=== PATIENT | female | born 1945 | race Caucasian/White ===

== ENCOUNTER 2021-04-20 17:29 | Emergency (ER) | payer OTHER ==
[~2021-04-20] VITALS: Ht 157.5 cm; Wt 113.4 kg
[2021-04-20] MEDS ORDERED: NAP500T PO (20:10)
[2021-04-20] MEDS ORDERED: KETOROLAC TROMETH 60MG/2ML VIAL IM ONE (20:15)
[2021-04-20 20:45] VITALS: BP 155/84
== END 2021-04-20 20:47 | disposition home or self-care (01) ==
LOC: ER 17:29
DX: M54.41 Lumbago with sciatica, right side (principal); W18.39XA Other fall on same level, initial encounter; Y93.89 Activity, other specified; Y92.89 Other specified places as the place of occurrence of the external cause; Y99.8 Other external cause status
CPT/HCPCS: 72100; 96372; 99283; J1885

== ENCOUNTER 2024-04-16 15:20 | Inpatient (IN) | payer MEDICARE, OTHER ==
[~2024-04-16] VITALS: Ht 157.5 cm; Wt 103.0 kg
[~2024-04-16 15:20] MED LIST: NAP500T PO
--- NOTE | 2024-04-16 15:40 | ED.PDOC ---
History of Present Illness HPI Comments 79-year-old female with PMHx Slipped Disc, DM presents with a chief complaint of abdominal pain and back pain. Patient reports that her pain is localized to her epigastric region, radiates to her backside, and rates her pain a 8/10. Patient mentions that she also has recently been experiencing nausea, vomiting, and diarrhea, but currently is not experiencing those symptoms. No other symptoms or modifying factors present at this time. Patient was hypertensive on arrival. Patient states she has multiple comorbidities for which he has not taken medication in the past several months including hypertension and diabetes. Time Seen by MD: 15:35 Reviewed Notes: Nurses Notes, Medications, Allergies Allergies: Coded Allergies: NO KNOWN ALLERGIES (Unverified , 04/20/21) Home Meds Active Scripts Naproxen (NAPROSYN TABLET) 500 Mg Tb, 500 MG PO BID for 30 Days, #60 TAB 2 Refills Prov:BUTCH LEBLANC MD 04/20/21 Information Source: Patient Mode of Arrival: Ambulatory Severity: Moderate Timing: Hours Duration: Since onset Prehospital treatment: None Past Medical History PAST MEDICAL HISTORY: DM, HTN Past Medical History (Other): Slipped Disc Surgical History: Denies all surgeries Surgical History (Other): Bilateral Knee Repair, Right Hip 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 Family History Family History: Reviewed,noncontributory to illness Social History Smoker: Non-Smoker Alcohol: Denies ETOH Use Drugs: Denies Drug Use Lives In: Home Constitutional: denies: chills, diaphoresis, fatigue, fever, malaise, sweats, weakness, others EENTM: denies: blurred vision, double vision, ear bleeding, ear discharge, ear drainage, ear pain, ear ringing, eye pain, eye redness, hearing loss, mouth harris n, mouth swelling, nasal discharge, nose bleeding, nose congestion, nose pain, photophobia, tearing, throat pain, throat swelling, voice changes, others Respiratory: denies: cough, hemoptysis, orthopnea, SOB at rest, shortness of breath, SOB with excertion, stridor, wheezing, others Cardiovascular: denies: chest pain, dizzy spells, diaphoresis, Dyspnea on exertion, edema, irregular heart beat, left arm pain, lightheadedness, palpitations, PND, syncope, others Gastrointestinal: reports: abdominal pain; denies: abdomen distended, blood streaked bowels, constipated, diarrhea, dysphagia, difficulty swallowing, hematemesis, melena, nausea, poor appetite, poor fluid intake, rectal bleeding, rectal pain, vomiting, others Genitourinary: denies: abnormal vagina bleeding, burning, dyspareunia, dysuria, flank pain, frequency, hematuria, incontinence, pain, , vagina discharge, urgency, others Neurological: denies: dizziness, fainting, headache, left sided numbness, left sided weakness, numbness, paresthesia, pre-existing deficit, right sided numbness, right sided weakness, seizure, speech problems, tingling, tremors, weakness, others Musculoskeletal: reports: back pain; denies: gout, joint pain, joint swelling, muscle pain, muscle stiffness, neck pain, others Integumetry: denies: bruises, change in color, change in hair/nails, dryness, laceration, lesions, lumps, rash, wounds, others Allergic/Immunocompromised: denies: Difficulty Healing, Frequent Infections, Hives, Itching, others Hematologic/Lymphatic: denies: anemia, blood clots, easy bleeding, easy bruising, swollen glands, others Endocrine: denies: excessive hunger, excessive sweating, excessive thirst, excessive urination, flushing, intolerance to cold, intolerance to heat, unexplained weight gain, unexplained weight loss, others Psychiatric: denies: anxiety, bipolar disorder, depression, hopeless, panic dis order, schizophrenia, sleepless, suicidal, others All Other Systems: Reviewed and Negative Physical Exam Exam Comments Patient appears to be in poor overall health. General Appearance: Moderate Distress (Moderate distress due to belly and back pain concerns.), Normal HEENT: Normal ENT Inspection, Pharynx Normal, TMs Normal Neck: Full Range of Motion, Non-Tender, Normal, Normal Inspection Respiratory: Chest Non-Tender, Lungs Clear, No Accessory Muscle Use, No Respiratory Distress, Normal Breath Sounds Cardiovascular: No Edema, No JVD, No Murmur, No Gallop, Normal Peripheral Pulses, Regular Rate/Rhythm Breast Exam: Deferred Gastrointestinal: Other (Diffuse epigastric tenderness to palpation bilaterally. Difficult to assess due to body habitus. No signs of trauma. No pulsatile masses.) Genitalia: Deferred Pelvic: Deferred Rectal: Deferred Extremities: NOT DONE Musculoskeletal : Location: Bilateral Extremity Location: Back (Diffuse bilateral lower thoracic and lumbar tenderness to palpation. No signs of acute trauma. No step-offs noted. Brianne ent denies any saddle paresthesia. Possible Smith's sign but difficult to assess due to body habitus.) Apperance: Normal Neurologic: Alert, No Motor Deficits, Normal Affect, Normal Mood, No Sensory Deficits Cerebellar Function: Normal Reflexes: Normal Skin: Dry, Normal Color, Warm Lymphatic: No Adenopathy Was a procedure done? Was a procedure done?: No Differential Dx Considerations may include: Chronic back pain, spinal stenosis, degenerative disc disease of the lumbar spine, pancreatitis, cholecystitis, gastroenteritis X-Ray, Labs, Meds, VS Vital Signs Date Time Temp Pulse Resp B/P (MAP) Pulse Ox O2 Delivery O2 Flow Rate FiO2 04/16/24 16:45 195/74 04/16/24 16:34 80 18 98 Room Air 04/16/24 16:34 80 18 195/74 (114) 98 04/16/24 15:54 84 04/16/24 15:38 97.9 88 16 179/74 (109) 98 Lab Test 04/16/24 18:00 04/16/24 17:32 04/16/24 15:58 04/16/24 15:57 Range/Units Lactic Acid Level Pending 2.2 *H 0.4-2.0 mmol/L Urine Color Yellow Yellow Urine Clarity Clear Clear Urine pH 6.5 5.0-9.0 Urine Specific [place] 1.033 1.001-1.035 Urine Protein 3+ H Negative Urine Ketones 1+ H Negative Urine Blood 2+ H Negative /uL Urine Nitrite Negative Negative Urine Bilirubin Negative Negative Urine Urobilinogen Normal Negative mg/dL Urine Leukocyte Esterase Trace Negative /uL Urine RBC 16 0 - 4 /hpf Urine Microscopic WBC 29 H 0-5 /HPF Urine Squamous Epithelial Cells Few <5 /hpf Urine Bacteria None seen None Seen /hpf Urine Glucose 4+ H Normal mg/dL White Blood Count 21.5 H 4.4-10.8 10^3/uL Red Blood Count 5.13 4.0-5.20 10^6/uL Hemoglobin 15.1 12.2-16.2 g/dL Hematocrit 45.2 36.0-46.0 % Mean Corpuscular Volume 88.2 80.0-100.0 fL Mean Corpuscular Hemoglobin 29.4 28.0-32.0 pg Mean Corpuscular Hemoglobin Concent 33.3 32.0-36.0 g/dL Red Cell Distribution Width 14.7 H 11.8-14.3 % Platelet Count 197 140-450 10^3/uL Mean Platelet Volume 9.0 6.9-10.8 fL Neutrophils (%) (Auto) 92.1 H 37.0-80.0 % Lymphocytes (%) (Auto) 2.7 L 10.0-50.0 % Monocytes (%) (Auto) 5.0 0.0-12.0 % Eosinophils (%) (Auto) 0.0 0.0-7.0 % Basophils (%) (Auto) 0.2 0.0-2.0 % Neutrophils # (Auto) 19.8 H 1.6-8.6 10 ^3/uL Lymphocytes # (Auto) 0.6 0.4-5.4 10 ^3/uL Monocytes # (Auto) 1.1 0-1.3 10 ^3/uL Eosinophils # (Auto) 0 0-0.8 10 ^3/uL Basophils # (Auto) 0 0-0.2 10 ^3/uL Nucleated Red Blood Cells 0.0 % Sodium Level 135 L 136-145 mmol/L Potassium Level 4.1 3.5-5.1 mmol/L Chloride Level 101 98-107 mmol/L Carbon Dioxide Level 24 20-31 mmol/L Anion Gap 10 5-15 Blood Urea Nitrogen 18 9-23 mg/dL Creatinine 0.82 0.550-1.02 mg/dL Glomerular Filtration Rate Calc 74 >90 mL/min BUN/Creatinine Ratio 22.0 H 10.0-20.0 Serum Glucose 170 H 74-106 mg/dL Calcium Level 10.0 8.7-10.4 mg/dL Troponin I High Sensitivity 16 </=34 ng/L Lipase 22 12-53 U/L Current Medications Medications (Trade) Dose Ordered Sig/Maria Isabel Route Start Time Stop Time Status Last Admin Dicyclomine HCl (Bentyl Injection) 20 mg ONCE ONCE IM 04/16/24 15:45 04/16/24 15:46 DC 04/16/24 15:45 Ondansetron HCl (Zofran Po) 4 mg ONCE ONCE PO 04/16/24 15:45 04/16/24 15:46 DC 04/16/24 15:45 Clonidine HCl (Catapres Tablet) 0.2 mg ONCE ONCE PO 04/16/24 16:45 04/16/24 16:46 DC 04/16/24 16:45 X-Ray, Labs, Meds, VS Comment All studies performed the ED were evaluated by me personally. [place] [id number] as well as a urinary tract infection. Imaging of the abdomen and pelvis revealed an acute cholecystitis. Radiology contacted me to relay that finding. Patient will be admitted for surgical evaluation. Patient is a has been started empirically on IV antibiotics and her pain will be addressed while in the ED. Time of 1ST Reevaluation: 18:27 Reevaluation 1ST: Improved Consultation: PCP, Surgery Patient Education/Counseling: Diagnosis, Treatment, Prognosis Family Education/Counseling: Diagnosis, Treatment, Prognosis Departure 1 Departure Time of Disposition: 18:28 Impression: Primary Impression: Cholecystitis Additional Impressions: Leukocytosis Urinary tract infection Chronic back pain Hypertension Hyperglycemia due to diabetes mellitus Disposition: ADMITTED INPATIENT Condition: Stable Discharged With: Self Critical Care Note Critical Care Time?: No Stability Stability form required: No Heart Score Heart Score: Heart Score Response (Comments) Value History Slightly Suspicious 0 EKG Normal 0 Age >65 2 Risk Factors 1 or 2 risk factors 1 Troponin Normal limit 0 Total 3 I personally scribed for ZAIRA FUNG PAC ([email or web address]) on 04/16/24 at 15:40. Electronically submitted by Jair Phoenix ([email or web address]). ZAIRA FUNG PAC Apr 16, 2024 15:40
[2024-04-16] MEDS: DICYCLOMINE HCL (10MG/ML) 2 ML AMPULE IM ONE (15:45)
[2024-04-16] MEDS: ONDANSETRON ODT 4 MG TAB PO ONE (15:45)
--- NOTE | 2024-04-16 15:56 | ECG ---
[facility] Test Date: 2024-04-16 Test Time: 15:54:38 Pat Name: IFEANYI MILLS Department: ER Room: 0232 Gender: F Windows Admin: SAUL : 1945 Requested By: ZAIRA FUNG Order Number: [id number] Reading MD: Dennis Edwards Measurements Intervals [place] Rate: 84 P: -3 HI: 168 QRS: -7 QRSD: 89 T: 151 QT: 357 QTc: 422 Interpretive Statements Sinus rhythm Probable left atrial enlargement LVH with secondary repolarization abnormality Electronically Signed On 04-19-2024 8:23:21 PST by Dennis Edwards Please click the below link to view image of tracing.
[2024-04-16 16:14] LABS: Basophils # (auto) 0 10 ^3/uL (0-0.2); Basophils % (auto) 0.2 % (0.0-2.0); Eosinophils # (auto) 0 10 ^3/uL (0-0.8); Hematocrit 45.2 % (36.0-46.0); Hemoglobin 15.1 g/dL (12.2-16.2); Lymphocytes # (auto) 0.6 10 ^3/uL (0.4-5.4); Lymphocytes % (auto) 2.7 % (10.0-50.0); Mean Corpuscular Hemoglobin 29.4 pg (28.0-32.0); Mean Corpuscular Hgb Conc. 33.3 g/dL (32.0-36.0); Mean Corpuscular Volume 88.2 fL (80.0-100.0); Monocytes # (auto) 1.1 10 ^3/uL (0-1.3); Neutrophils # (auto) 19.8 10 ^3/uL (1.6-8.6); Neutrophils % (auto) 92.1 % (37.0-80.0); Platelet Count (auto) 197 10^3/uL (140-450); Red Blood Cells 5.13 10^6/uL (4.0-5.20); Red Cell Distribution Width 14.7 % (11.8-14.3); White Blood Cell 21.5 10^3/uL (4.4-10.8)
[2024-04-16 16:21] LABS: Anion Gap 10 (5-15); Carbon Dioxide 24 mmol/L (20-31); Chloride 101 mmol/L (98-107); Potassium 4.1 mmol/L (3.5-5.1)
--- NOTE | 2024-04-16 16:22 | DVH ---
CT ABDOMEN AND PELVIS WITHOUT CONTRAST CLINICAL HISTORY: Diffuse abdominal and back pain TECHNIQUE: Multiple contiguous axial images of the abdomen and pelvis without intravenous contrast. The images were reformatted degenerate coronal and sagittal reconstructions. All CT scans at this medical facility are performed using dose modulation techniques as appropriate t o a performed exam including the following:Automated exposure control was utilized; adjustment of the MA and/or KV according to patient size; and use of iterative reconstruction technique. Radiation Dose Information: CT Dose: CTDI volume is 33.46 mGy. Dose-length product is 1654.15 mGy*cm Comparison: None FINDINGS: Evaluation of the abdomen and pelvis is limited without intravenous contrast. The gallbladder is distended and filled with mildly hyperdense sludge. There is no obvious radiopaqu e gallstone. There is gallbladder wall thickening and moderate surrounding fatty induration consisten t with acute cholecystitis. There is no significant pericholecystic fluid collection or free air. The liver, gallbladder, pancreas, kidneys, adrenal glands, and spleen appear within normal limits. There is no gross evidence of abdominal lymphadenopathy. The stomach grossly appears unremarkable. The small and large bowel loops demonstrate normal caliber . There are scattered diverticula in the distal colon without evidence of acute diverticulitis. The abdominal aorta and IVC appear within normal limits. The bladder appears unremarkable for the degree of distention. Pelvic organ appears within normal jaimes its. There is no gross evidence of a pelvic mass. There is no free fluid collection. Lung bases are clear. There is no acute osseous abnormality. There is right hip arthroplasty with moderate associated strea k artifact IMPRESSION: 1. Findings consistent with acute cholecystitis. There is no significant pericholecystic fluid collec tion or free air. Critical findings discussed with the clinical service by Dr. Diego Ko via phone on 04/16/2024 04: 16 PM. HS:Y
[2024-04-16 16:27] LABS: Blood Urea Nitrogen 18 mg/dL (9-23); Lipase 22 U/L (12-53)
[2024-04-16 16:28] LABS: Glucose 170 mg/dL (74-106); Sodium 135 mmol/L (136-145)
[2024-04-16 16:37] LABS: Lactic Acid w/Reflex 2.2 mmol/L (0.4-2.0)
[2024-04-16] MEDS: cloNIDine HCL 0.1 MG TAB PO ONE (16:45)
[2024-04-16 17:38] LABS: Urine Bacteria None Seen /hpf (None Seen)
[2024-04-16 18:13] LABS: Urine Blood 2+ /uL (Negative); Urine Clarity Clear (Clear); Urine Color Yellow (Yellow); Urine Protein, UAD 3+ (Negative); Urine Specific Gravity 1.033 (1.001-1.035); Urine Squamous Epithelial Cell FEW /hpf (<5); Urine Urobilinogen Normal (Negative); Urine WBC 29 /HPF (0-5); Urine pH 6.5 (5.0-9.0)
[2024-04-16 19:40] VITALS: PULSE 75; RESP 22; O2SAT 96
[2024-04-16] MEDS: HYDROmorphone HCL 2 MG/ML VL/or syr IV ONE (19:40)
[2024-04-16] MEDS: PIPERACILLIN-TAZO 4.5GM 100 ML IV ONE (19:41)
[2024-04-16] MEDS ORDERED: NITROGLYCERIN 0.4 MG SL TAB SL PRN (21:00)
[2024-04-16] MEDS ORDERED: MORPHINE SULFATE INJ 2 MG/ml SYRG IV PRN (21:00)
[2024-04-16] MEDS ORDERED: ONDANSETRON HCL 4 MG/2 ML VIAL IV PRN (21:00)
--- NOTE | 2024-04-16 21:33 | DVHHPRES ---
History of Present Illness Resident Creating Document: DONNY WALTERS RESIDENT History of Present Illness IFEANYI MILLS 79 yo female with PMH of T2 DM, HTN, RA and slipped disc presented to the ED with the chief complaints of epigastric to right upper quadrant pain for couple of days. Patient reported she never experienced like t he same pain before, which started a epigastric region and right upper quadrant radiating to the back side, intensity is 7 to 8/10 associated with nausea and vomiting and mild diarrhea. Patient denies fever, chest pain, recent sick contacts, travel and other acute associated symptoms at this point. PMH: Type 2 DM, HTN, RA PSH: Bilateral knee replacement and right hip replacement Family history: Reviewed, noncontributory Social history: Lives alone. Denies smoking, alcohol and other drug abuse Allergies: No known allergies Home medications: Review of Systems Review of Systems Seen and examined at the bedside. Constitutional: No: Fever, Chills, Sweats, Weakness, Malaise, Other Eyes: No: Pain, Vision change, Conjunctivae inflammation, Eyelid inflammation, Other, Redness ENT: No: Ear pain, Ear discharge, Nose pain, Nose discharge, Nose congestion, Mouth pain, Mouth swelling, Throat pain, Throat swelling, Other Respiratory: No: Cough, Dry, Shortness of breath, SOB with excertion, Wheezing, Hemoptysis, Pleuritic Pain, Sputum, Wheezing, Other Cardiovascular: No: Chest Pain, Palpitations, Orthopnea, Paroxysmal Noc. D yspnea, Edema, Lt Headedness, Other Gastrointestinal: Nausea, Vomiting, Abdominal Pain Genitourinary: No Dysuria, No Frequency, No Incontinence, No Hematuria, No Retention, No Other Musculoskeletal: No: other, neck pain, shoulder pain, arm pain, back pain, hand pain, leg pain, foot pain Skin: No: Rash, Lesions, Jaundice, Bruising, Other Neurological: No: Weakness, Numbness, Incoordination, Change in speech, Confusion, Seizures, Other Allergies: Coded Allergies: NO KNOWN ALLERGIES (Unverified , 04/20/21) Medications Current Medications Medications Dose Ordered Sig/Maria Isabel Route Start Time Stop Time Status Last Admin Dose Admin Sodium Chloride 1,000 ml @ 60 mls/hr [id number] IV 04/16/24 21:00 UNV Ondansetron HCl 4 mg Q4HP PRN IV 04/16/24 21:00 UNV Enoxaparin Sodium 40 mg DAILY SC 04/17/24 10:00 UNV Acetaminophen 650 mg Q6HP PRN PO 04/16/24 21:00 UNV Morphine Sulfate 2 mg Q4HPRN PRN IV 04/16/24 21:00 UNV Nitroglycerin 0.4 mg Q5MINP PRN SL 04/16/24 21:00 UNV Morphine Sulfate 2 mg Q30M PRN IV 04/16/24 21:00 UNV Ceftriaxone Sodium 50 ml @ 100 mls/hr DAILY IV 04/17/24 10:00 UNV Metronidazole 100 ml @ 100 mls/hr DAILY IV 04/17/24 10:00 UNV Pantoprazole Sodium 40 mg DAILY IV 04/17/24 10:00 UNV Hydralazine HCl 10 mg Q6HP PRN IV 04/16/24 21:30 UNV Exam Vital Signs Vital Signs Date Time Temp Pulse Resp B/P (MAP) Pulse Ox O2 Delivery O2 Flow Rate FiO2 04/16/24 20:30 75 18 139/66 04/16/24 19:40 97.9 96 97.9 04/16/24 19:40 Room Air* 0 21 Exam Pt is lying on bed General Appearance: Alert, Oriented X3, Cooperative, mild distress HEENT: Atraumatic, Mucous membranes moist/pink Respiratory: Clear to auscultation, Normal air movement Cardiovascular: Regular rate, Normal S1, Normal S2, No murmurs Abdominal: Active bowel sounds, Soft, no distention, RUQ tenderness Extremities: No edema, Normal pulses, No tenderness/swelling Skin: No Significant rash, except past surgical scars Neuro: Normal speech, sensorimotor deficits none Psych/Mental Status: Mental status NL, Mood NL Nurse was there as charperone during examination Labs/Xrays Labs Test 04/16/24 21:19 04/16/24 18:00 04/16/24 17:32 04/16/24 15:57 Range/Units Lactic Acid Level 2.3 *H 0.4-2.0 mmol/L Urine Color Yellow Yellow Urine Clarity Clear Clear Urine pH 6.5 5.0-9.0 Urine Specific [place] 1.033 1.001-1.035 Urine Protein 3+ H Negative Urine Ketones 1+ H Negative Urine Blood 2+ H Negative /uL Urine Nitrite Negative Negative Urine Bilirubin Negative Negative Urine Urobilinogen Normal Negative mg/dL Urine Leukocyte Esterase Trace Negative /uL Urine RBC 16 0 - 4 /hpf Urine Microscopic WBC 29 H 0-5 /HPF Urine Squamous Epithelial Cells Few <5 /hpf Urine Bacteria None seen None Seen /hpf Urine Glucose 4+ H Normal mg/dL Eosinophils (%) (Auto) 0.0 0.0-7.0 % Eosinophils # (Auto) 0 0-0.8 10 ^3/uL Basophils # (Auto) 0 0-0.2 10 ^3/uL Nucleated Red Blood Cells 0.0 % Sodium Level 135 L 136-145 mmol/L Potassium Level 4.1 3.5-5.1 mmol/L Chloride Level 101 98-107 mmol/L Carbon Dioxide Level 24 20-31 mmol/L Anion Gap 10 5-15 Blood Urea Nitrogen 18 9-23 mg/dL Creatinine 0.82 0.550-1.02 mg/dL Glomerular Filtration Rate Calc 74 >90 mL/min BUN/Creatinine Ratio 22.0 H 10.0-20.0 Serum Glucose 170 H 74-106 mg/dL Calcium Level 10.0 8.7-10.4 mg/dL Troponin I High Sensitivity 16 </=34 ng/L Lipase 22 12-53 U/L Assessment/Plan Assessment/Plan # Acute cholecystitis # Sepsis likely due to above vs UTI - evident on CT abdominal pelvis - given 1 dose of Zosyn - started Rocephin and Flagyl - currently on IVF pain management - surgical consult - continuously monitoring - ordered blood and urine cultures # Acute complicated UTI - evident on urinalysis - ordered urine bacterial culture - currently giving Rocephin # Influenza A& B -test positive -Tamiflu 75 b.i.d. # COVID 19 infection -test positive -initial CXR showed no change # hypertensive urgency - continuously monitoring - hydralazine p.r.n. for now # morbid obesity with a BMI 38.6 -lifestyle modifications -nutritional counseling PUD PPX: Protonix VTE PPX: Lovenox for now Diet: NPO for now Goals of care discussed with the patient for more than 29 minutes: Full code status Case discussed with Dr. Landry, patient and nurse Plan discussed with: Patient, Other (RN) My Orders Orders - DONNY WALTERS RESIDENT Procedure Category Date Status Time Admit ADMIT 04/16/24 Transmitted 20:57 Allergies SANTIAGO 04/16/24 In Process 20:57 Code Status CODE 04/16/24 Transmitted 20:57 Sodium Chloride 0.9% PHA 04/16/24 Logged 21:00 Ondansetron Hcl PHA 04/16/24 Logged (Zofran) 21:00 Enoxaparin Sodium PHA 04/17/24 Logged (Lovenox) 10:00 Complete Blood Count LAB 04/17/24 Verified 04:00 Comprehensive LAB 04/17/24 Verified Metabolic Panel 04:00 Npo (Nothing By DIET 04/17/24 Transmitted Mouth) Diet Breakfast Condition: Stable SANTIAGO 04/16/24 In Process 20:57 Acetaminophen Tablet PHA 04/16/24 Logged (Tylenol Tablet) 21:00 Morphine Sulfate PHA 04/16/24 Logged Injection 21:00 Nitroglycerin PHA 04/16/24 Logged Sublingual (Ntrostat 21:00 Morphine Sulfate PHA 04/16/24 Logged Injection 21:00 Oxygen By Nasal RT 04/16/24 Transmitted Cannula 20:57 Stat Ekg For Chest [facility] 04/16/24 In Process Pain 20:57 Notify Of Changes [facility] 04/16/24 In Process From Base 20:57 Websphere Message Broker Developer For [facility] 04/16/24 In Process 24 Hours 20:57 Emergency Dysrhythmia [facility] 04/16/24 In Process Protocol 20:57 Rhythm Strips Once [facility] 04/16/24 In Process Every Shift 20:57 Comprehensive LAB 04/16/24 Logged Metabolic Panel 21:10 Complete Blood Count LAB 04/16/24 Logged 21:10 Blood Alcohol LAB 04/16/24 Logged 21:10 B-Type Natriuretic LAB 04/16/24 Logged Peptide 21:10 Ammonia LAB 04/16/24 Logged 21:10 Drug Screen LAB 04/16/24 Logged 21:10 Magnesium LAB 04/16/24 Logged 21:10 PTPTT LAB 04/16/24 Logged 21:10 Chest Xray 1 View XY 04/16/24 Logged 21:10 * Surgical Consult CONS 04/16/24 Transmitted Ceftriaxone 1gm/50ml PHA 04/17/24 Logged D5w (Rocephin) 10:00 Metronidazole PHA 04/17/24 Logged 500mg/100ml (Flagyl 10:00 Rapid Influenza A&B LAB 04/16/24 Logged 21:14 Covid19 Antigen Felicitas LAB 04/16/24 Logged Blood Culture AIME 04/16/24 Uncollected (Pediatric) 21:21 Urine Bacterial AIME 04/16/24 Uncollected Culture 21:21 Pantoprazole PHA 04/17/24 Logged (Protonix) 10:00 Hydralazine Injection PHA 04/16/24 Logged (Apresoline Inject 21:30 Hemoglobin A1c LAB 04/16/24 Logged 21:30 Lipase LAB 04/16/24 Logged 21:30 Date of Service: Apr 16, 2024 Billing Provider: JOSE DANIEL LANDRY MD Common Visit Codes: [id number] INP/OBS CARE (HIGH) DONNY WALETRS RESIDENT Apr 16, 2024 21:33 JOSE DANIEL LANDRY MD Apr 19, 2024 16:18
[2024-04-16 21:54] LABS: Hematocrit 45.9 % (36.0-46.0); Hemoglobin 15.1 g/dL (12.2-16.2); Mean Corpuscular Hemoglobin 29.1 pg (28.0-32.0); Mean Corpuscular Hgb Conc. 32.9 g/dL (32.0-36.0); Mean Corpuscular Volume 88.4 fL (80.0-100.0); Platelet Count (auto) 180 10^3/uL (140-450); Red Blood Cells 5.19 10^6/uL (4.0-5.20); Red Cell Distribution Width 14.9 % (11.8-14.3); White Blood Cell 24.5 10^3/uL (4.4-10.8)
[2024-04-16 21:56] LABS: Band Neutrophils % (manual) 0; Basophils % (manual) 0 (0.0-2.0); Blast Cells 0; Eosinophils % (manual) 0 (0-7); Metamyelocytes % 0; Myelocytes % 0; Promyelocytes % 0; Reactive Lymphocytes 0
[2024-04-16 21:59] LABS: Alanine Aminotransferase 10 U/L (7-40); Anion Gap 10 (5-15); Aspartate Aminotransferase 20 U/L (13-40); BUN/Creatinine Ratio 20.4 (10.0-20.0); Blood Urea Nitrogen 19 mg/dL (9-23); Calcium 10.2 mg/dL (8.7-10.4); Carbon Dioxide 24 mmol/L (20-31); Chloride 100 mmol/L (98-107); Potassium 4.2 mmol/L (3.5-5.1)
[2024-04-16 22:00] LABS: Albumin 4.4 g/dL (3.2-4.8); Alkaline Phosphatase 129 U/L (46-116); Bilirubin, Total 1.1 mg/dL (0.2-1.0); Blood Alcohol < 3.0 mg/dL (<10); Glucose 206 mg/dL (74-106); INR 1.05 (0.9-1.15); Partial Thromboplastin Time 30.5 SEC (24.5-34.5); Prothrombin Time 11.1 sec (9.3-11.8); Sodium 134 mmol/L (136-145); Total Protein 7.8 g/dL (5.7-8.2)
[2024-04-16 22:00] LABS: Amphetamine Screen, Urine Neg (NEGATIVE); Barbiturate Scree,Urine Neg (NEGATIVE); Benzodiazephine Screen, Urine Neg (NEGATIVE); Cannabinoid Screen, Urine Neg (NEGATIVE); Cocaine Screen, Urine Neg (NEGATIVE); Opiate Scree,Urine Neg (NEGATIVE); Phencyclidine Screen, Urine Neg (NEGATIVE)
[2024-04-16 22:14] LABS: Lipase 24 U/L (12-53); Lymphocytes % (manual) 3 (10.0-50.0); Monocytes % (manual) 3 (0-12); Platelet Estimate Adequate
--- NOTE | 2024-04-16 23:04 | DVH ---
CHEST RADIOGRAPH Indication: pre operative Technique: Single frontal view of the chest was obtained COMPARISON: None FINDINGS: Lines and Tubes: None Lungs: Clear Pleura: No effusion. No pneumothorax. Cardiomediastinal contours: Unremarkable IMPRESSION: No abnormality demonstrated.
[2024-04-16 23:34] LABS: COVID19 ANTIGEN SOFIA FIA POSITIVE (NEGATIVE)
[2024-04-16 23:35] LABS: Rapid Influenza A Positive (Negative); Rapid Influenza B Positive (Negative)
[2024-04-17] VITALS (9 sets, daily range): BP systolic 112–125; BP diastolic 40–65; PULSE 62–86; RESP 18–24; TEMP 98.2–101; O2SAT 89–100
[2024-04-17] MEDS: SODIUM CHLORIDE 0.9% 1,000 ML IV SCH (03:20)
[2024-04-17] MEDS: metroNIDAZOLE 500MG/100ML 100 ML IV ONE (03:22)
[2024-04-17] MEDS: cefTRIAXone 1GM/50ML D5W 50 ML IV ONE (03:23)
[2024-04-17] MEDS: OSELTAMIVIR 30 MG CAP PO ONE ×2 (03:36→03:37)
[2024-04-17] MEDS ORDERED: LOSA-535 PO (04:37)
[2024-04-17] MEDS ORDERED: METH2.5T PO (04:37)
[2024-04-17] MEDS ORDERED: EMPA1TAB (04:37)
[2024-04-17 07:41] LABS: Basophils # (auto) 0 10 ^3/uL (0-0.2); Basophils % (auto) 0.1 % (0.0-2.0); Eosinophils # (auto) 0 10 ^3/uL (0-0.8); Hematocrit 45.7 % (36.0-46.0); Lymphocytes # (auto) 0.6 10 ^3/uL (0.4-5.4); Lymphocytes % (auto) 2.5 % (10.0-50.0); Mean Corpuscular Hemoglobin 29.2 pg (28.0-32.0); Mean Corpuscular Hgb Conc. 32.8 g/dL (32.0-36.0); Mean Corpuscular Volume 89.2 fL (80.0-100.0); Monocytes # (auto) 1.7 10 ^3/uL (0-1.3); Monocytes % (auto) 6.6 % (0.0-12.0); Neutrophils # (auto) 23.1 10 ^3/uL (1.6-8.6); Neutrophils % (auto) 90.8 % (37.0-80.0); Platelet Count (auto) 175 10^3/uL (140-450); Red Blood Cells 5.13 10^6/uL (4.0-5.20); Red Cell Distribution Width 14.7 % (11.8-14.3); White Blood Cell 25.5 10^3/uL (4.4-10.8)
[2024-04-17 07:46] LABS: Anion Gap 9 (5-15); Aspartate Aminotransferase 23 U/L (13-40); BUN/Creatinine Ratio 19.8 (10.0-20.0); Blood Urea Nitrogen 22 mg/dL (9-23); Calcium 9.8 mg/dL (8.7-10.4); Carbon Dioxide 23 mmol/L (20-31); Chloride 101 mmol/L (98-107); Potassium 4.1 mmol/L (3.5-5.1)
[2024-04-17 07:47] LABS: Bilirubin, Total 0.8 mg/dL (0.2-1.0)
[2024-04-17 07:54] LABS: Alanine Aminotransferase 9 U/L (7-40); Alkaline Phosphatase 122 U/L (46-116); Glucose 161 mg/dL (74-106); Sodium 133 mmol/L (136-145)
[2024-04-17] MEDS: PANTOPRAZOLE 40 MG/10 ML VIAL INJ IV SCH (10:14)
[2024-04-17] MEDS: ENOXAPARIN SOD 40 MG/0.4 ML SYRINGE SC SCH (10:15)
--- NOTE | 2024-04-17 11:27 | DVHINCON2 ---
Date of service: Apr 17, 2024 Family History: Diabetes mellitus G8 MOTHER FH: leukemia G8 FATHER FHx: heart disease Hypertension G8 MOTHER G8 FATHER Allergies: Coded Allergies: NO KNOWN ALLERGIES (Unverified , 04/20/21) Home Meds Active Scripts Naproxen (NAPROSYN TABLET) 500 Mg Tb, 500 MG PO BID for 30 Days, #60 TAB 2 Refills Prov:BUTCH LELBANC MD 04/20/21 Reported Medications Methotrexate (Methotrexate) 2.5 Mg Tab, 2.5 MG PO, MG 04/17/24 Losartan Potassium (Losartan Potassium) 100 Mg Tab, 1 TAB PO DAILY 04/17/24 Empagliflozin (Jardiance) 10 Mg Tab, 1 DAILY 04/17/24 Current Medications Current Medications Medications (Trade) Dose Ordered Sig/Maria Isabel Route PRN Reason Start Time Stop Time Status Last Admin Sodium Chloride 1,000 ml @ 60 mls/hr [id number] IV 04/16/24 21:00 04/17/24 03:20 Ondansetron HCl (Zofran) 4 mg Q4HP PRN IV NAUSEA / VOMITING 04/16/24 21:00 Enoxaparin Sodium (Lovenox) 40 mg DAILY SC 04/17/24 10:00 04/17/24 10:15 Acetaminophen (Tylenol Tablet) 650 mg Q6HP PRN PO PAIN SCALE 1-3 OR TEMP>100.4 04/16/24 21:00 Morphine Sulfate 2 mg Q4HPRN PRN IV SEVERE PAIN (7-10 PAIN SCALE) 04/16/24 21:00 Nitroglycerin (Ntrostat Sublingual) 0.4 mg Q5MINP PRN SL FOR CHEST PAIN 04/16/24 21:00 Morphine Sulfate 2 mg Q30M PRN IV FOR CHEST PAIN 04/16/24 21:00 Ceftriaxone Sodium 50 ml @ 100 mls/hr DAILY IV 04/18/24 10:00 Metronidazole 100 ml @ 100 mls/hr DAILY IV 04/18/24 10:00 Pantoprazole Sodium (Protonix) 40 mg DAILY IV 04/17/24 10:00 04/17/24 10:14 Hydralazine HCl (Apresoline Injection) 10 mg Q6HP PRN IV SBP>160 04/16/24 21:30 Oseltamivir Phosphate (Tamiflu 30MG Capsule) 30 mg Q12HR PO 04/17/24 22:00 04/22/24 21:59 Vital Signs Vital Signs Date Time Temp Pulse Resp B/P (MAP) Pulse Ox O2 Delivery O2 Flow Rate FiO2 04/17/24 09:00 99.1 81 21 118/64 (82) 93 99.1 04/17/24 02:57 Nasal Cannula* 2 28 Labs/Diagnostic Data Labs Test 04/17/24 06:47 04/17/24 00:25 04/16/24 22:45 04/16/24 21:19 Range/Units White Blood Count 25.5 H 4.4-10.8 10^3/uL Red Blood Count 5.13 4.0-5.20 10^6/uL Hemoglobin 15.0 12.2-16.2 g/dL Hematocrit 45.7 36.0-46.0 % Mean Corpuscular Volume 89.2 80.0-100.0 fL Mean Corpuscular Hemoglobin 29.2 28.0-32.0 pg Mean Corpuscular Hemoglobin Concent 32.8 32.0-36.0 g/dL Red Cell Distribution Width 14.7 H 11.8-14.3 % Platelet Count 175 140-450 10^3/uL Mean Platelet Volume 9.2 6.9-10.8 fL Neutrophils (%) (Auto) 90.8 H 37.0-80.0 % Lymphocytes (%) (Auto) 2.5 L 10.0-50.0 % Monocytes (%) (Auto) 6.6 0.0-12.0 % Eosinophils (%) (Auto) 0.0 0.0-7.0 % Basophils (%) (Auto) 0.1 0.0-2.0 % Neutrophils # (Auto) 23.1 H 1.6-8.6 10 ^3/uL Lymphocytes # (Auto) 0.6 0.4-5.4 10 ^3/uL Monocytes # (Auto) 1.7 H 0-1.3 10 ^3/uL Eosinophils # (Auto) 0 0-0.8 10 ^3/uL Basophils # (Auto) 0 0-0.2 10 ^3/uL Nucleated Red Blood Cells 0.0 % Sodium Level 133 L 136-145 mmol/L Potassium Level 4.1 3.5-5.1 mmol/L Chloride Level 101 98-107 mmol/L Carbon Dioxide Level 23 20-31 mmol/L Anion Gap 9 5-15 Blood Urea Nitrogen 22 9-23 mg/dL Creatinine 1.11 H 0.550-1.02 mg/dL Glomerular Filtration Rate Calc 51 >90 mL/min BUN/Creatinine Ratio 19.8 10.0-20.0 Serum Glucose 161 H 74-106 mg/dL Calcium Level 9.8 8.7-10.4 mg/dL Total Bilirubin 0.8 0.2-1.0 mg/dL Aspartate Amino Transferase (AST) 23 13-40 U/L Alanine Aminotransferase (ALT) 9 7-40 U/L Alkaline Phosphatase 122 H 46-116 U/L Total Protein 7.0 5.7-8.2 g/dL Albumin 4.0 3.2-4.8 g/dL Troponin I High Sensitivity 18 </=34 ng/L Influenza Type A Antigen Positive Negative Influenza Type B Antigen Positive Negative SARS-CoV-2 Antigen (Rapid) Positive NEGATIVE Differential Total Cells Counted 100.0 100 Neutrophils % (Manual) 94 H 37.0-80.0 Band Neutrophils % (Manual) 0 Lymphocytes % (Manual) 3 L 10.0-50.0 Monocytes % (Manual) 3 0-12 Eosinophils % (Manual) 0 0-7 Basophils % (Manual) 0 0.0-2.0 Metamyelocytes % (manual) 0 Myelocytes % (Manual) 0 Promyelocytes % (Manual) 0 Blast Cells % (Manual) 0 Reactive Lymphocytes 0 Platelet Estimate Adequate Prothrombin Time 11.1 9.3-11.8 sec Prothrombin Time INR 1.05 0.9-1.15 Activated Partial Thromboplast Time 30.5 24.5-34.5 SEC Hemoglobin A1c 5.6 <5.7 % A1C Magnesium Level 2.0 1.6-2.6 mg/dL Ammonia < 10 L 11-32 umol/L B-Type Natriuretic Peptide 263.00 0-100 pg/mL Lipase 24 12-53 U/L Plasma/Serum Blood Alcohol < 3.0 <10 mg/dL Test 04/16/24 18:00 04/16/24 17:32 Range/Units Lactic Acid Level 2.3 *H 0.4-2.0 mmol/L Urine Color Yellow Yellow Urine Clarity Clear Clear Urine pH 6.5 5.0-9.0 Urine Specific [place] 1.033 1.001-1.035 Urine Protein 3+ H Negative Urine Ketones 1+ H Negative Urine Blood 2+ H Negative /uL Urine Nitrite Negative Negative Urine Bilirubin Negative Negative Urine Urobilinogen Normal Negative mg/dL Urine Leukocyte Esterase Trace Negative /uL Urine RBC 16 0 - 4 /hpf Urine Microscopic WBC 29 H 0-5 /HPF Urine Squamous Epithelial Cells Few <5 /hpf Urine Bacteria None seen None Seen /hpf Urine Glucose 4+ H Normal mg/dL Urine Opiates Screen Neg NEGATIVE Urine Fentanyl Screen Neg NEGATIVE Urine Barbiturates Screen Neg NEGATIVE Urine Phencyclidine Screen Neg NEGATIVE Urine Amphetamines Screen Neg NEGATIVE Urine Benzodiazepines Screen Neg NEGATIVE Urine Cocaine Screen Neg NEGATIVE Urine Cannabinoids Screen Neg NEGATIVE Assessment [id number] R/O AC CHOLECYSTITIS LFT ALKP ELEVATED WBC ELEVATED MRCP R/O CBD STONE HIGH RISK FOR SURGERY Plan discussed with: Other KIARA LINARES MD Apr 17, 2024 11:27
--- NOTE | 2024-04-17 11:59 | DVHSR ---
APPROVED REPORT EXAM: LIMITED Two-dimensional and M-mode echocardiogram with Doppler and color Doppler. Blood Pressure: 112/40 mmHg INDICATION ? CHF RISK FACTORS Obesity: Height: 5'0, Weight: 209 DIMENSIONS EF (%) 55.0 (55-70%)Rt. Atrium (1.9-4.0cm)Asc. Aorta cm Mitral Valve MitralMitral Stenosis E wave0.58m/sMV Mean GR.mmHg A wave0.83m/sMV Peak GR.mmHg E/A ratio0.72D MVAcm2 DECEL [id number] 1/2 Timems Aortic Valve Aortic ValveAortic Stenosis V11.06m/Zaire Mean GR.18mmHg V22.70m/Zaire Peak GR.29mmHg Other Information Quality : Technically LimitedRhythm : Technically limited study due to pt laying on right side and moving Conclusion poor qualty images lvef 55% RV enlarged left attrium enlarged mild to moderate , mean gradient of 17 mmgh, no parasternal views to fully assess it however
--- NOTE | 2024-04-17 12:29 | DVHINCON2 ---
DATE OF CONSULTATION: 04/17/2024 HISTORY OF PRESENT ILLNESS: This patient is 79 years old, coming in with right upper quadrant pain for about a couple of days, not had this happen before. She had this pain noted to the back side as well with some nausea and vomiting and mild diarrhea. No chest pain. No fever or chills. No hematemesis or melena. No bleeding per rectum. PAST MEDICAL HISTORY: Diabetes, hypertension, and rheumatoid arthritis. PAST SURGICAL HISTORY: Bilateral knee replacement and right hip replacement. PHYSICAL EXAMINATION: VITAL SIGNS: Afebrile. She is COVID positive. HEENT: Mild pallor. No cyanosis or jaundice. NECK: Supple, nontender with no thyromegaly, lymphadenopathy. CHEST AND LUNGS: Clear. HEART: Within normal limits. ABDOMEN: Mildly tender. No rebound. EXTREMITIES: Unremarkable. NEUROLOGIC: Not assessed. CLINICAL IMPRESSION: Rule out acute cholecystitis. She has mild elevation of liver enzymes and alkaline phosphatase and could a CBD stone. The first thing to do will be to keep him under close observation, keep her n.p.o., manage conservatively because of her coronavirus disease status and at the same time do an MRCP to rule out a CBD stone. MD RENEA Flowers/JUANI TID: [id number] RECEIPT: [id number] cc: Carri Tinsley
--- NOTE | 2024-04-17 12:41 | DVHPN2 ---
Subjective 79-year-old female with a history of type 2 diabetes, hypertension, rheumatoid arthritis came with a chief complaint of abdominal pain and nausea and vomiting She was diagnosed with acute cholecystitis She was also diagnosed with the influenza a and B and COVID She says she lives alone She is on room air Changes from previous H/P or p: Changes Eyes: No Pain, No Vision change, No Conjunctivae inflammation, No Eyelid inflammation, No Other, No Redness ENT: No Ear pain, No Ear discharge, No Nose pain, No Nose discharge, No Nose congestion, No Mouth pain, No Mouth swelling, No Throat pain, No Throat swelling, No Other Cardiovascular: No Chest Pain, No Palpitations, No Orthopnea, No Paroxysmal Noc. Dyspnea, No Edema, No Lt Headedness, No Other Respiratory: No Cough, No Dry, No Shortness of breath, No SOB with excertion, No Wheezing, No Hemoptysis, No Pleuritic Pain, No Sputum, No Other Gastrointestinal: Nausea, Vomiting, Abdominal Pain Genitourinary: No Dysuria, No Frequency, No Incontinence, No Hematuria, No Retention, No Other Musculoskeletal: No other, No neck pain, No shoulder pain, No arm pain, No back pain, No hand pain, No leg pain, No foot pain Skin: No Rash, No Lesions, No Jaundice, No Bruising, No Other Objective Vitals Vital Signs Date Time Temp Pulse Resp B/P (MAP) Pulse Ox O2 Delivery O2 Flow Rate FiO2 04/17/24 09:00 99.1 81 21 118/64 (82) 93 99.1 04/17/24 02:57 Nasal Cannula* 2 28 Intake/Output Intake and Output 04/17/24 07:00 Intake Total 100 ml Balance 100 ml Intake Oral 0 ml IV Total 100 ml General Appearance: Alert, Oriented X3, Cooperative, No acute distress Lungs: Clear to auscultation, Normal air movement Cardiovascular: Regular rate, Normal S1, Normal S2 Abdomen: Normal bowel sounds, Soft, Other (Moderate tenderness in the right upper quadrant) Extremities: No edema Medications Current Medications Medications Dose Ordered Sig/Maria Isabel Route Start Time Stop Time Status Last Admin Dose Admin Sodium Chloride 1,000 ml @ 60 mls/hr [id number] IV 04/16/24 21:00 04/17/24 03:20 60 MLS/HR Ondansetron HCl 4 mg Q4HP PRN IV 04/16/24 21:00 Enoxaparin Sodium 40 mg DAILY SC 04/17/24 10:00 04/17/24 10:15 40 MG Acetaminophen 650 mg Q6HP PRN PO 04/16/24 21:00 Morphine Sulfate 2 mg Q4HPRN PRN IV 04/16/24 21:00 Nitroglycerin 0.4 mg Q5MINP PRN SL 04/16/24 21:00 Morphine Sulfate 2 mg Q30M PRN IV 04/16/24 21:00 Ceftriaxone Sodium 50 ml @ 100 mls/hr DAILY IV 04/18/24 10:00 Metronidazole 100 ml @ 100 mls/hr DAILY IV 04/18/24 10:00 Pantoprazole Sodium 40 mg DAILY IV 04/17/24 10:00 04/17/24 10:14 40 MG Hydralazine HCl 10 mg Q6HP PRN IV 04/16/24 21:30 Oseltamivir Phosphate 30 mg Q12HR PO 04/17/24 22:00 04/22/24 21:59 Laboratory Results Laboratory Tests 04/17/24 06:47 Chemistry Test 04/16/24 15:57 04/16/24 21:19 04/17/24 06:47 Calcium Level 10.0 mg/dL (8.7-10.4) 10.2 mg/dL (8.7-10.4) 9.8 mg/dL (8.7-10.4) Albumin 4.4 g/dL (3.2-4.8) 4.0 g/dL (3.2-4.8) Magnesium Level 2.0 mg/dL (1.6-2.6) Total Protein 7.8 g/dL (5.7-8.2) 7.0 g/dL (5.7-8.2) Coagulation Test 04/16/24 21:19 Prothrombin Time 11.1 sec (9.3-11.8) Prothrombin Time INR 1.05 (0.9-1.15) Activated Partial Thromboplast Time 30.5 SEC (24.5-34.5) Lipid panel Test 04/16/24 15:57 04/16/24 21:19 Lipase 22 U/L (12-53) 24 U/L (12-53) Cardiac Markers Test 04/16/24 21:19 B-Type Natriuretic Peptide 263.00 pg/mL (0-100) LFT Test 04/16/24 21:19 04/17/24 06:47 Alanine Aminotransferase (ALT) 10 U/L (7-40) 9 U/L (7-40) Alkaline Phosphatase 129 U/L (46-116) H 122 U/L (46-116) H Aspartate Amino Transferase (AST) 20 U/L (13-40) 23 U/L (13-40) Total Bilirubin 1.1 mg/dL (0.2-1.0) H 0.8 mg/dL (0.2-1.0) HgA1c, TSH Test 04/16/24 21:19 Hemoglobin A1c 5.6 % A1C (<5.7) Urinalysis Test 04/16/24 17:32 Urine Color Yellow (Yellow) Urine Clarity Clear (Clear) Urine pH 6.5 (5.0-9.0) Urine Specific [place] 1.033 (1.001-1.035) Urine Protein 3+ (Negative) H Urine Ketones 1+ (Negative) H Urine Blood 2+ /uL (Negative) H Urine Nitrite Negative (Negative) Urine Bilirubin Negative (Negative) Urine Urobilinogen Normal mg/dL (Negative) Urine Leukocyte Esterase Trace /uL (Negative) Urine RBC 16 /hpf (0 - 4) Urine Microscopic WBC 29 /HPF (0-5) H Urine Squamous Epithelial Cells Few /hpf (<5) Urine Bacteria None seen /hpf (None Seen) Urine Glucose 4+ mg/dL (Normal) H Assessment/Plan Assessment/Plan Acute cholecystitis Influenza a and B COVID positive Sepsis UTI Hypertension Hypertensive urgency Morbid obesity Plan Keep NPO Surgical consult is on IV antibiotics with Rocephin and Flagyl Lovenox Tamiflu for the influenza Oxygen as needed Protonix IV Pain management as needed Full code Advance directives discussed for 16 minutes Plan discussed with: Patient Date of Service: Apr 17, 2024 Billing Provider: JAMES PECK MD Common Visit Codes: [id number] INP/OBS CARE(HIGH) Secondary Visit Codes: [id number] CARE PLAN 30 MINUTES JAMES PECK MD Apr 17, 2024 12:41
--- NOTE | 2024-04-17 14:55 | DVHINCON2 ---
Date of service: Apr 17, [address] rojas Reason for Consultation covid and influenza History of Present Illness Pt is a 79 yo female, h/o RA, DM and htn, presented with RUQ pain, diarrhea and nausea. Pt non smoker. Pt tested pos've for covid and ifluenza. On suppl 02 2 lpm. admitted for work up Family History: Diabetes mellitus G8 MOTHER FH: leukemia G8 FATHER FHx: heart disease Hypertension G8 MOTHER G8 FATHER Allergies: Coded Allergies: NO KNOWN ALLERGIES (Unverified , 04/20/21) Home Meds Active Scripts Hydrocodone-Acetaminophen (Hydrocodone Bitartrate/AC 5-325 mg) 1 Tab Tab, 1 TAB PO Q8HP PRN, #12 TAB Prov:ZAIRA FUNG PAC 04/22/24 Naproxen (NAPROSYN TABLET) 500 Mg Tb, 500 MG PO BID for 30 Days, #60 TAB 2 Refills Prov:BUTCH LEBLANC MD 04/20/21 Reported Medications Methotrexate (Methotrexate) 2.5 Mg Tab, 2.5 MG PO, MG 04/17/24 Losartan Potassium (Losartan Potassium) 100 Mg Tab, 1 TAB PO DAILY 04/17/24 Empagliflozin (Jardiance) 10 Mg Tab, 1 DAILY 04/17/24 Current Medications Current Medications Medications (Trade) Dose Ordered Sig/Maria Isabel Route PRN Reason Start Time Stop Time Status Last Admin Sodium Chloride 1,000 ml @ 60 mls/hr [id number] IV 04/16/24 21:00 04/17/24 14:46 Ondansetron HCl (Zofran) 4 mg Q4HP PRN IV NAUSEA / VOMITING 04/16/24 21:00 Enoxaparin Sodium (Lovenox) 40 mg DAILY SC 04/17/24 10:00 04/17/24 10:15 Acetaminophen (Tylenol Tablet) 650 mg Q6HP PRN PO PAIN SCALE 1-3 OR TEMP>100.4 04/16/24 21:00 Morphine Sulfate 2 mg Q4HPRN PRN IV SEVERE PAIN (7-10 PAIN SCALE) 04/16/24 21:00 Nitroglycerin (Ntrostat Sublingual) 0.4 mg Q5MINP PRN SL FOR CHEST PAIN 04/16/24 21:00 Morphine Sulfate 2 mg Q30M PRN IV FOR CHEST PAIN 04/16/24 21:00 Ceftriaxone Sodium 50 ml @ 100 mls/hr DAILY IV 04/18/24 10:00 Metronidazole 100 ml @ 100 mls/hr DAILY IV 04/18/24 10:00 Pantoprazole Sodium (Protonix) 40 mg DAILY IV 04/17/24 10:00 04/17/24 10:14 Hydralazine HCl (Apresoline Injection) 10 mg Q6HP PRN IV SBP>160 04/16/24 21:30 Oseltamivir Phosphate (Tamiflu 30MG Capsule) 30 mg Q12HR PO 04/17/24 22:00 04/22/24 21:59 Review of Systems Constitutional: no fever, chill, weight loss HEENT: no eye pain, no hearing loss, no oral lesion, no scleral icterus Heart: no chest pain, no chest pressure Lung: no cough, no dyspnea with exertion Abdomen: see HPI : no pain with urination, normal appearing urine Musculoskeletal: no joint pain, no muscle pain Neurological: no seizure, no loss of sensation, no weakness in extremities Pysch: no depression, no anxiety Derm: no rash, no jaundice Vital Signs Vital Signs Date Time Temp Pulse Resp B/P (MAP) Pulse Ox O2 Delivery O2 Flow Rate FiO2 04/17/24 13:00 99.3 71 23 112/54 (73) 89 99.3 04/17/24 08:00 Nasal Cannula* 2 28 Labs/Diagnostic Data Labs Test 04/17/24 06:47 04/17/24 00:25 04/16/24 22:45 04/16/24 21:19 Range/Units White Blood Count 25.5 H 4.4-10.8 10^3/uL Red Blood Count 5.13 4.0-5.20 10^6/uL Hemoglobin 15.0 12.2-16.2 g/dL Hematocrit 45.7 36.0-46.0 % Mean Corpuscular Volume 89.2 80.0-100.0 fL Mean Corpuscular Hemoglobin 29.2 28.0-32.0 pg Mean Corpuscular Hemoglobin Concent 32.8 32.0-36.0 g/dL Red Cell Distribution Width 14.7 H 11.8-14.3 % Platelet Count 175 140-450 10^3/uL Mean Platelet Volume 9.2 6.9-10.8 fL Neutrophils (%) (Auto) 90.8 H 37.0-80.0 % Lymphocytes (%) (Auto) 2.5 L 10.0-50.0 % Monocytes (%) (Auto) 6.6 0.0-12.0 % Eosinophils (%) (Auto) 0.0 0.0-7.0 % Basophils (%) (Auto) 0.1 0.0-2.0 % Neutrophils # (Auto) 23.1 H 1.6-8.6 10 ^3/uL Lymphocytes # (Auto) 0.6 0.4-5.4 10 ^3/uL Monocytes # (Auto) 1.7 H 0-1.3 10 ^3/uL Eosinophils # (Auto) 0 0-0.8 10 ^3/uL Basophils # (Auto) 0 0-0.2 10 ^3/uL Nucleated Red Blood Cells 0.0 % Sodium Level 133 L 136-145 mmol/L Potassium Level 4.1 3.5-5.1 mmol/L Chloride Level 101 98-107 mmol/L Carbon Dioxide Level 23 20-31 mmol/L Anion Gap 9 5-15 Blood Urea Nitrogen 22 9-23 mg/dL Creatinine 1.11 H 0.550-1.02 mg/dL Glomerular Filtration Rate Calc 51 >90 mL/min BUN/Creatinine Ratio 19.8 10.0-20.0 Serum Glucose 161 H 74-106 mg/dL Calcium Level 9.8 8.7-10.4 mg/dL Total Bilirubin 0.8 0.2-1.0 mg/dL Aspartate Amino Transferase (AST) 23 13-40 U/L Alanine Aminotransferase (ALT) 9 7-40 U/L Alkaline Phosphatase 122 H 46-116 U/L Total Protein 7.0 5.7-8.2 g/dL Albumin 4.0 3.2-4.8 g/dL Troponin I High Sensitivity 18 </=34 ng/L Influenza Type A Antigen Positive Negative Influenza Type B Antigen Positive Negative SARS-CoV-2 Antigen (Rapid) Positive NEGATIVE Differential Total Cells Counted 100.0 100 Neutrophils % (Manual) 94 H 37.0-80.0 Band Neutrophils % (Manual) 0 Lymphocytes % (Manual) 3 L 10.0-50.0 Monocytes % (Manual) 3 0-12 Eosinophils % (Manual) 0 0-7 Basophils % (Manual) 0 0.0-2.0 Metamyelocytes % (manual) 0 Myelocytes % (Manual) 0 Promyelocytes % (Manual) 0 Blast Cells % (Manual) 0 Reactive Lymphocytes 0 Platelet Estimate Adequate Prothrombin Time 11.1 9.3-11.8 sec Prothrombin Time INR 1.05 0.9-1.15 Activated Partial Thromboplast Time 30.5 24.5-34.5 SEC Hemoglobin A1c 5.6 <5.7 % A1C Magnesium Level 2.0 1.6-2.6 mg/dL Ammonia < 10 L 11-32 umol/L B-Type Natriuretic Peptide 263.00 0-100 pg/mL Lipase 24 12-53 U/L Plasma/Serum Blood Alcohol < 3.0 <10 mg/dL Test 04/16/24 18:00 04/16/24 17:32 Range/Units Lactic Acid Level 2.3 *H 0.4-2.0 mmol/L Urine Color Yellow Yellow Urine Clarity Clear Clear Urine pH 6.5 5.0-9.0 Urine Specific [place] 1.033 1.001-1.035 Urine Protein 3+ H Negative Urine Ketones 1+ H Negative Urine Blood 2+ H Negative /uL Urine Nitrite Negative Negative Urine Bilirubin Negative Negative Urine Urobilinogen Normal Negative mg/dL Urine Leukocyte Esterase Trace Negative /uL Urine RBC 16 0 - 4 /hpf Urine Microscopic WBC 29 H 0-5 /HPF Urine Squamous Epithelial Cells Few <5 /hpf Urine Bacteria None seen None Seen /hpf Urine Glucose 4+ H Normal mg/dL Urine Opiates Screen Neg NEGATIVE Urine Fentanyl Screen Neg NEGATIVE Urine Barbiturates Screen Neg NEGATIVE Urine Phencyclidine Screen Neg NEGATIVE Urine Amphetamines Screen Neg NEGATIVE Urine Benzodiazepines Screen Neg NEGATIVE Urine Cocaine Screen Neg NEGATIVE Urine Cannabinoids Screen Neg NEGATIVE Plan/Recommendation acute cholecystitis hypoxemia atelectases influenza covid min 02 req labs and CXR reviewed management started on tamiflu broad spectrum abx alb/atr for wheezing pain control IS Gen sx consult ok to proceed to sx from pulm standpoint Plan discussed with: Patient DAVID WEBSTER MD Apr 17, 2024 14:55
[2024-04-17] MEDS: ACETAMINOPHEN 325 MG TAB PO PRN (17:07)
[2024-04-17] MEDS: OSELTAMIVIR 30 MG CAP PO SCH (21:52)
[2024-04-18 01:00] VITALS: BP_SYST 111; BP_SYST 127; BP_DIAS 47; BP_DIAS 50; PULSE 68; PULSE 71; RESP 16; RESP 19; TEMP 97.6; TEMP 98.7; O2SAT 94; O2SAT 97
[2024-04-18 05:00] VITALS: BP 120/49; PULSE 77; RESP 17; TEMP 98.4; O2SAT 96
[2024-04-18 07:31] LABS: Basophils # (auto) 0 10 ^3/uL (0-0.2); Basophils % (auto) 0.1 % (0.0-2.0); Eosinophils # (auto) 0 10 ^3/uL (0-0.8); Eosinophils % (auto) 0.1 % (0.0-7.0); Hemoglobin 12.8 g/dL (12.2-16.2); Lymphocytes # (auto) 0.5 10 ^3/uL (0.4-5.4); Lymphocytes % (auto) 2.4 % (10.0-50.0); Mean Corpuscular Hemoglobin 29.4 pg (28.0-32.0); Mean Corpuscular Hgb Conc. 32.8 g/dL (32.0-36.0); Mean Corpuscular Volume 89.8 fL (80.0-100.0); Monocytes # (auto) 1.4 10 ^3/uL (0-1.3); Monocytes % (auto) 6.2 % (0.0-12.0); Neutrophils # (auto) 20.4 10 ^3/uL (1.6-8.6); Neutrophils % (auto) 91.2 % (37.0-80.0); Platelet Count (auto) 173 10^3/uL (140-450); Red Blood Cells 4.34 10^6/uL (4.0-5.20); Red Cell Distribution Width 14.4 % (11.8-14.3); White Blood Cell 22.3 10^3/uL (4.4-10.8)
[2024-04-18 07:53] LABS: Alanine Aminotransferase 11 U/L (7-40); Albumin 3.4 g/dL (3.2-4.8); Anion Gap 12 (5-15); Aspartate Aminotransferase 21 U/L (13-40); BUN/Creatinine Ratio 22.3 (10.0-20.0); Calcium 9.1 mg/dL (8.7-10.4); Carbon Dioxide 21 mmol/L (20-31); Chloride 103 mmol/L (98-107); Cholesterol 135 mg/dL (< 200); HDL Cholesterol 47 mg/dL (40-59); LDL Cholesterol 67 mg/dL (< 100); Potassium 3.5 mmol/L (3.5-5.1); Triglycerides 90 mg/dL (< 150)
[2024-04-18 07:54] LABS: Bilirubin, Total 0.7 mg/dL (0.2-1.0); Total Protein 6.1 g/dL (5.7-8.2)
[2024-04-18 08:06] LABS: Alkaline Phosphatase 117 U/L (46-116); Blood Urea Nitrogen 40 mg/dL (9-23); Glucose 109 mg/dL (74-106); Sodium 136 mmol/L (136-145)
[2024-04-18 08:48] LABS: Lipase 20 U/L (12-53)
[2024-04-18 09:00] VITALS: BP 116/35; PULSE 65; RESP 16; TEMP 99.6; O2SAT 92
[2024-04-18] MEDS: SODIUM CHLORIDE 0.9% 500 ML IV ONE (09:46)
[2024-04-18] MEDS: cefTRIAXone 1GM/50ML D5W 50 ML IV SCH (11:06)
[2024-04-18] MEDS: SODIUM CHLORIDE 0.9% 1,000 ML IV SCH (11:07)
--- NOTE | 2024-04-18 11:37 | DVHPN2 ---
Subjective Still symptomatic with the abdominal pain She is NPO White count is still high at 22 Creatinine 1.79 Changes from previous H/P or p: Changes Eyes: No Pain, No Vision change, No Conjunctivae inflammation, No Eyelid inflammation, No Other, No Redness ENT: No Ear pain, No Ear discharge, No Nose pain, No Nose discharge, No Nose congestion, No Mouth pain, No Mouth swelling, No Throat pain, No Throat swelling, No Other Cardiovascular: No Chest Pain, No Palpitations, No Orthopnea, No Paroxysmal Noc. Dyspnea, No Edema, No Lt Headedness, No Other Respiratory: No Cough, No Dry, No Shortness of breath, No SOB with excertion, No Wheezing, No Hemoptysis, No Pleuritic Pain, No Sputum, No Other Gastrointestinal: Nausea, Vomiting, Abdominal Pain Genitourinary: No Dysuria, No Frequency, No Incontinence, No Hematuria, No Retention, No Other Musculoskeletal: No other, No neck pain, No shoulder pain, No arm pain, No back pain, No hand pain, No leg pain, No foot pain Skin: No Rash, No Lesions, No Jaundice, No Bruising, No Other Objective Vitals Vital Signs Date Time Temp Pulse Resp B/P (MAP) Pulse Ox O2 Delivery O2 Flow Rate FiO2 04/18/24 09:00 99.6 65 16 116/35 (62) 92 99.6 04/18/24 08:00 Nasal Cannula* 2 28 Intake/Output Intake and Output 04/18/24 07:00 Intake Total 0 ml Output Total 450 ml Balance -450 ml Intake Oral 0 ml Output Urine Total 450 ml General Appearance: Alert, Oriented X3, Cooperative, No acute distress Lungs: Clear to auscultation, Normal air movement Cardiovascular: Regular rate, Normal S1, Normal S2 Abdomen: Normal bowel sounds, Soft, Other (Moderate tenderness in the right upper quadrant) Extremities: No edema Medications Current Medications Medications Dose Ordered Sig/Maria Isabel Route Start Time Stop Time Status Last Admin Dose Admin Ondansetron HCl 4 mg Q4HP PRN IV 04/16/24 21:00 Enoxaparin Sodium 40 mg DAILY SC 04/17/24 10:00 04/18/24 09:21 40 MG Acetaminophen 650 mg Q6HP PRN PO 04/16/24 21:00 04/17/24 17:07 650 MG Morphine Sulfate 2 mg Q4HPRN PRN IV 04/16/24 21:00 Nitroglycerin 0.4 mg Q5MINP PRN SL 04/16/24 21:00 Morphine Sulfate 2 mg Q30M PRN IV 04/16/24 21:00 Ceftriaxone Sodium 50 ml @ 100 mls/hr DAILY IV 04/18/24 10:00 04/18/24 11:06 100 MLS/HR Metronidazole 100 ml @ 100 mls/hr DAILY IV 04/18/24 10:00 Pantoprazole Sodium 40 mg DAILY IV 04/17/24 10:00 04/18/24 09:21 40 MG Hydralazine HCl 10 mg Q6HP PRN IV 04/16/24 21:30 Oseltamivir Phosphate 30 mg Q12HR PO 04/17/24 22:00 04/22/24 21:59 04/18/24 09:21 30 MG Sodium Chloride 1,000 ml @ 125 mls/hr Q8H IV 04/18/24 09:30 04/18/24 11:07 125 MLS/HR Laboratory Results Laboratory Tests 04/18/24 06:45 Chemistry Test 04/18/24 06:45 Albumin 3.4 g/dL (3.2-4.8) Calcium Level 9.1 mg/dL (8.7-10.4) Magnesium Level 2.0 mg/dL (1.6-2.6) Total Protein 6.1 g/dL (5.7-8.2) Lipid panel Test 04/18/24 06:45 Cholesterol Level 135 mg/dL (< 200) HDL Cholesterol 47 mg/dL (40-59) Lipase 20 U/L (12-53) Triglycerides Level 90 mg/dL (< 150) LFT Test 04/18/24 06:45 Alanine Aminotransferase (ALT) 11 U/L (7-40) Alkaline Phosphatase 117 U/L (46-116) H Aspartate Amino Transferase (AST) 21 U/L (13-40) Total Bilirubin 0.7 mg/dL (0.2-1.0) Urinalysis Test 04/16/24 17:32 Urine Color Yellow (Yellow) Urine Clarity Clear (Clear) Urine pH 6.5 (5.0-9.0) Urine Specific [place] 1.033 (1.001-1.035) Urine Protein 3+ (Negative) H Urine Ketones 1+ (Negative) H Urine Blood 2+ /uL (Negative) H Urine Nitrite Negative (Negative) Urine Bilirubin Negative (Negative) Urine Urobilinogen Normal mg/dL (Negative) Urine Leukocyte Esterase Trace /uL (Negative) Urine RBC 16 /hpf (0 - 4) Urine Microscopic WBC 29 /HPF (0-5) H Urine Squamous Epithelial Cells Few /hpf (<5) Urine Bacteria None seen /hpf (None Seen) Urine Glucose 4+ mg/dL (Normal) H Assessment/Plan Assessment/Plan Acute cholecystitis Influenza a and B COVID positive Sepsis UTI Hypertension Hypertensive urgency Morbid obesity Plan Keep NPO Surgical consult is on IV antibiotics with Rocephin and Flagyl Lovenox Tamiflu for the influenza Oxygen as needed Protonix IV Pain management as needed Full code Advance directives discussed for 16 minutes 04/18/2024: REBEKA hemodynamically mediated: Increase the IV fluids Dehydration: Increase the IV fluids Keep NPO Surgical consult is following IV antibiotics Tamiflu Oxygen as needed Pulmonary consult Full code Monitor closely Plan discussed with: Patient My Orders Orders - JAMES PECK MD Procedure Category Date Status Time Mrcp Mri MRI 04/17/24 Logged 12:38 Sodium Chloride 0.9% PHA 04/18/24 In Process 09:30 *Consult CONS 04/18/24 Transmitted / 09:51 Blood Culture AIME 04/18/24 In Process 10:49 Date of Service: Apr 18, 2024 Billing Provider: JAMES PECK MD Common Visit Codes: [id number] INP/OBS CARE(HIGH) JAMES PECK MD Apr 18, 2024 11:37
[2024-04-18] MEDS: metroNIDAZOLE 500MG/100ML 100 ML IV SCH (11:58)
--- NOTE | 2024-04-18 12:20 | DVHPN2 ---
Progress Note - Dictate Date Seen: Apr 18, 2024 Medical Necessity Reason Pt with a Central, PICC or Fol: No vital signs Vital Sign Date Time Temp Pulse Resp B/P (MAP) Pulse Ox O2 Delivery O2 Flow Rate FiO2 04/18/24 09:00 99.6 65 16 116/35 (62) 92 99.6 04/18/24 08:00 Nasal Cannula* 2 28 Total Intake and Output 04/17/24 04/17/24 04/18/24 15:00 23:00 07:00 Intake Total 0 ml Output Total 150 ml 300 ml Balance -150 ml -300 ml medications Current Medications Medications Dose Ordered Sig/Maria Isabel Route Start Time Stop Time Status Last Admin Dose Admin Ondansetron HCl 4 mg Q4HP PRN IV 04/16/24 21:00 Enoxaparin Sodium 40 mg DAILY SC 04/17/24 10:00 04/18/24 09:21 40 MG Acetaminophen 650 mg Q6HP PRN PO 04/16/24 21:00 04/17/24 17:07 650 MG Morphine Sulfate 2 mg Q4HPRN PRN IV 04/16/24 21:00 Nitroglycerin 0.4 mg Q5MINP PRN SL 04/16/24 21:00 Morphine Sulfate 2 mg Q30M PRN IV 04/16/24 21:00 Ceftriaxone Sodium 50 ml @ 100 mls/hr DAILY IV 04/18/24 10:00 04/18/24 11:06 100 MLS/HR Metronidazole 100 ml @ 100 mls/hr DAILY IV 04/18/24 10:00 04/18/24 11:58 100 MLS/HR Pantoprazole Sodium 40 mg DAILY IV 04/17/24 10:00 04/18/24 09:21 40 MG Hydralazine HCl 10 mg Q6HP PRN IV 04/16/24 21:30 Oseltamivir Phosphate 30 mg Q12HR PO 04/17/24 22:00 04/22/24 21:59 04/18/24 09:21 30 MG Sodium Chloride 1,000 ml @ 125 mls/hr Q8H IV 04/18/24 09:30 04/18/24 11:07 125 MLS/HR laboratory and microbiology Laboratory Tests 04/18/24 06:45 Test 04/18/24 06:45 Range/Units Serum Glucose 109 H 74-106 mg/dL Assessment/Plan acute cholecystitis hypoxemia atelectases influenza covid management tamiflu full course broad spectrum abx alb/atr for wheezing pain control IS Gen sx consult ok to proceed to sx from pulm standpoint Plan discussed with: Patient DAVID WEBSTER MD Apr 18, 2024 12:20
[2024-04-18 13:00] VITALS: BP 121/44; PULSE 68; RESP 17; TEMP 99.5; O2SAT 98
[2024-04-18 16:57] VITALS: BP 116/40; PULSE 77; RESP 18; TEMP 98.1; O2SAT 100
--- NOTE | 2024-04-18 20:14 | DVHPN2 ---
Progress Note Date Seen: Apr 18, 2024 Medical Necessity Reason Pt with a Central, PICC or Fol: No Objective vital signs Vital Sign Date Time Temp Pulse Resp B/P (MAP) Pulse Ox O2 Delivery O2 Flow Rate FiO2 04/18/24 19:53 Nasal Cannula* 2 28 04/18/24 16:57 98.1 77 18 116/40 (65) 100 98.1 Total Intake and Output 04/17/24 04/17/24 04/18/24 15:00 23:00 07:00 Intake Total 0 ml Output Total 150 ml 300 ml Balance -150 ml -300 ml medications Current Medications Medications Dose Ordered Sig/Maria Isabel Route Start Time Stop Time Status Last Admin Dose Admin Ondansetron HCl 4 mg Q4HP PRN IV 04/16/24 21:00 Enoxaparin Sodium 40 mg DAILY SC 04/17/24 10:00 04/18/24 09:21 40 MG Acetaminophen 650 mg Q6HP PRN PO 04/16/24 21:00 04/17/24 17:07 650 MG Morphine Sulfate 2 mg Q4HPRN PRN IV 04/16/24 21:00 Nitroglycerin 0.4 mg Q5MINP PRN SL 04/16/24 21:00 Morphine Sulfate 2 mg Q30M PRN IV 04/16/24 21:00 Ceftriaxone Sodium 50 ml @ 100 mls/hr DAILY IV 04/18/24 10:00 04/18/24 11:06 100 MLS/HR Metronidazole 100 ml @ 100 mls/hr DAILY IV 04/18/24 10:00 04/18/24 11:58 100 MLS/HR Pantoprazole Sodium 40 mg DAILY IV 04/17/24 10:00 04/18/24 09:21 40 MG Hydralazine HCl 10 mg Q6HP PRN IV 04/16/24 21:30 Oseltamivir Phosphate 30 mg Q12HR PO 04/17/24 22:00 04/22/24 21:59 04/18/24 09:21 30 MG Sodium Chloride 1,000 ml @ 125 mls/hr Q8H IV 04/18/24 09:30 04/18/24 17:30 125 MLS/HR laboratory and microbiology Laboratory Tests 04/18/24 06:45 Test 04/18/24 06:45 Range/Units Serum Glucose 109 H 74-106 mg/dL Problem List/Assessment/Plan Problem List/Assessment/Plan AFEBRILE VSS ABD SOFT LESS PAIN MRCP PENDING CONTINUE CLOSE OBSERVATION Plan discussed with: Patient, Other KIARA LINARES MD Apr 18, 2024 20:14
[2024-04-18 21:00] VITALS: BP 113/38; PULSE 73; RESP 19; TEMP 98.3; O2SAT 98
[2024-04-18] MEDS: MORPHINE SULFATE INJ 2 MG/ml SYRG IV PRN (21:34)
[2024-04-19] VITALS (7 sets, daily range): BP systolic 111–143; BP diastolic 47–75; PULSE 68–75; RESP 16–19; TEMP 97.2–98.6; O2SAT 90–100
[2024-04-19 08:48] LABS: Hepatitis B Surface Antigen Negative (Negative)
--- NOTE | 2024-04-19 10:51 | DVHPN2 ---
Subjective Still c/o abd pain Changes from previous H/P or p: Changes Eyes: No Pain, No Vision change, No Conjunctivae inflammation, No Eyelid inflammation, No Other, No Redness ENT: No Ear pain, No Ear discharge, No Nose pain, No Nose discharge, No Nose congestion, No Mouth pain, No Mouth swelling, No Throat pain, No Throat swelling, No Other Cardiovascular: No Chest Pain, No Palpitations, No Orthopnea, No Paroxysmal Noc. Dyspnea, No Edema, No Lt Headedness, No Other Respiratory: No Cough, No Dry, No Shortness of breath, No SOB with excertion, No Wheezing, No Hemoptysis, No Pleuritic Pain, No Sputum, No Other Gastrointestinal: Nausea, Vomiting, Abdominal Pain Genitourinary: No Dysuria, No Frequency, No Incontinence, No Hematuria, No Retention, No Other Musculoskeletal: No other, No neck pain, No shoulder pain, No arm pain, No back pain, No hand pain, No leg pain, No foot pain Skin: No Rash, No Lesions, No Jaundice, No Bruising, No Other Objective Vitals Vital Signs Date Time Temp Pulse Resp B/P (MAP) Pulse Ox O2 Delivery O2 Flow Rate FiO2 04/19/24 08:30 98.2 72 16 140/47 (78) 90 98.2 04/19/24 08:00 Nasal Cannula* 2 28 Intake/Output Intake and Output 04/19/24 07:00 Intake Total 3525 ml Output Total 150 ml Balance 3375 ml Intake Oral 0 ml IV Total 3525 ml Output Urine Total 150 ml # Voids 3 General Appearance: Alert, Oriented X3, Cooperative, No acute distress Lungs: Clear to auscultation, Normal air movement Cardiovascular: Regular rate, Normal S1, Normal S2 Abdomen: Normal bowel sounds, Soft, Other (Moderate tenderness in the right upper quadrant) Extremities: No edema Medications Current Medications Medications Dose Ordered Sig/Maria Isabel Route Start Time Stop Time Status Last Admin Dose Admin Ondansetron HCl 4 mg Q4HP PRN IV 04/16/24 21:00 Enoxaparin Sodium 40 mg DAILY SC 04/17/24 10:00 04/19/24 09:03 40 MG Acetaminophen 650 mg Q6HP PRN PO 04/16/24 21:00 04/17/24 17:07 650 MG Morphine Sulfate 2 mg Q4HPRN PRN IV 04/16/24 21:00 04/19/24 06:48 2 MG Nitroglycerin 0.4 mg Q5MINP PRN SL 04/16/24 21:00 Morphine Sulfate 2 mg Q30M PRN IV 04/16/24 21:00 Ceftriaxone Sodium 50 ml @ 100 mls/hr DAILY IV 04/18/24 10:00 04/19/24 08:12 100 MLS/HR Metronidazole 100 ml @ 100 mls/hr DAILY IV 04/18/24 10:00 04/19/24 09:02 100 MLS/HR Pantoprazole Sodium 40 mg DAILY IV 04/17/24 10:00 04/19/24 09:02 40 MG Hydralazine HCl 10 mg Q6HP PRN IV 04/16/24 21:30 Oseltamivir Phosphate 30 mg Q12HR PO 04/17/24 22:00 04/22/24 21:59 04/19/24 09:02 30 MG Sodium Chloride 1,000 ml @ 125 mls/hr Q8H IV 04/18/24 09:30 04/19/24 08:12 125 MLS/HR Laboratory Results Laboratory Tests 04/18/24 06:45 Urinalysis Test 04/16/24 17:32 Urine Color Yellow (Yellow) Urine Clarity Clear (Clear) Urine pH 6.5 (5.0-9.0) Urine Specific [place] 1.033 (1.001-1.035) Urine Protein 3+ (Negative) H Urine Ketones 1+ (Negative) H Urine Blood 2+ /uL (Negative) H Urine Nitrite Negative (Negative) Urine Bilirubin Negative (Negative) Urine Urobilinogen Normal mg/dL (Negative) Urine Leukocyte Esterase Trace /uL (Negative) Urine RBC 16 /hpf (0 - 4) Urine Microscopic WBC 29 /HPF (0-5) H Urine Squamous Epithelial Cells Few /hpf (<5) Urine Bacteria None seen /hpf (None Seen) Urine Glucose 4+ mg/dL (Normal) H Microbiology Microbiology Date/Time Source Procedure Growth Status 04/18/24 05:59 Voided Urine Urine Culture - Preliminary Resulted Assessment/Plan Assessment/Plan Acute cholecystitis Influenza a and B COVID positive Sepsis UTI Hypertension Hypertensive urgency Morbid obesity Plan Keep NPO Surgical consult is on IV antibiotics with Rocephin and Flagyl Lovenox Tamiflu for the influenza Oxygen as needed Protonix IV Pain management as needed Full code Advance directives discussed for 16 minutes 04/18/2024: REBEKA hemodynamically mediated: Increase the IV fluids Dehydration: Increase the IV fluids Keep NPO Surgical consult is following IV antibiotics Tamiflu Oxygen as needed Pulmonary consult Full code Monitor closely 04/19/24: Clear liquids MRCP pending Discussed with Dr. Elena Rees, will need MRCP hen surgery Recheck for COVID and influenza again Continue IV antibiotics IV fluids Tamiflu Plan discussed with: Patient My Orders Orders - JAMES PECK MD Procedure Category Date Status Time Blood Culture AIME 04/18/24 In Process 10:49 Complete Blood Count LAB 04/19/24 Logged 04:00 Comprehensive LAB 04/19/24 Logged Metabolic Panel 04:00 Magnesium LAB 04/19/24 Logged 04:00 Covid19 Antigen Felicitas LAB 04/19/24 In Process Rapid Influenza A&B LAB 04/19/24 In Process 09:58 Clear Liq Diet DIET 04/19/24 Transmitted Lunch Date of Service: Apr 19, 2024 Billing Provider: JAMES PECK MD Common Visit Codes: [id number] INP/OBS CARE(HIGH) JAMES PECK MD Apr 19, 2024 10:51
[2024-04-19 11:48] LABS: Rapid Influenza A Negative (Negative)
[2024-04-19 11:50] LABS: COVID19 ANTIGEN SOFIA FIA POSITIVE (NEGATIVE); Rapid Influenza B Positive (Negative)
[2024-04-19 11:55] LABS: Basophils # (auto) 0 10 ^3/uL (0-0.2); Basophils % (auto) 0.3 % (0.0-2.0); Eosinophils # (auto) 0.1 10 ^3/uL (0-0.8); Eosinophils % (auto) 0.3 % (0.0-7.0); Hemoglobin 12.3 g/dL (12.2-16.2); Lymphocytes # (auto) 0.8 10 ^3/uL (0.4-5.4); Lymphocytes % (auto) 5.4 % (10.0-50.0); Mean Corpuscular Hemoglobin 29.4 pg (28.0-32.0); Mean Corpuscular Hgb Conc. 32.3 g/dL (32.0-36.0); Monocytes % (auto) 6.5 % (0.0-12.0); Neutrophils % (auto) 87.5 % (37.0-80.0); Nucleated Red Blood Cells % 0.1 %; Platelet Count (auto) 199 10^3/uL (140-450); Red Blood Cells 4.18 10^6/uL (4.0-5.20); Red Cell Distribution Width 14.6 % (11.8-14.3); White Blood Cell 14.9 10^3/uL (4.4-10.8)
[2024-04-19 12:18] LABS: Alanine Aminotransferase 13 U/L (7-40); Calcium 9.1 mg/dL (8.7-10.4); Carbon Dioxide 20 mmol/L (20-31); Magnesium 2.2 mg/dL (1.6-2.6)
[2024-04-19 12:19] LABS: Albumin 3.3 g/dL (3.2-4.8); Anion Gap 11 (5-15); Aspartate Aminotransferase 26 U/L (13-40); BUN/Creatinine Ratio 35.4 (10.0-20.0); Sodium 140 mmol/L (136-145)
[2024-04-19 12:20] LABS: Bilirubin, Total 0.4 mg/dL (0.2-1.0); Total Protein 5.8 g/dL (5.7-8.2)
[2024-04-19 12:24] LABS: Alkaline Phosphatase 130 U/L (46-116); Blood Urea Nitrogen 45 mg/dL (9-23); Chloride 109 mmol/L (98-107); Glucose 73 mg/dL (74-106); Potassium 3.4 mmol/L (3.5-5.1)
--- NOTE | 2024-04-19 17:13 | DVHPN2 ---
Progress Note Date Seen: Apr 19, 2024 Medical Necessity Reason Pt with a Central, PICC or Fol: No Objective vital signs Vital Sign Date Time Temp Pulse Resp B/P (MAP) Pulse Ox O2 Delivery O2 Flow Rate FiO2 04/19/24 16:37 98.6 69 16 133/75 (94) 100 98.6 04/19/24 08:00 Nasal Cannula* 2 28 Total Intake and Output 04/18/24 04/18/24 04/19/24 15:00 23:00 07:00 Intake Total 650 ml 1875 ml 1000 ml Output Total 150 ml Balance 650 ml 1725 ml 1000 ml medications Current Medications Medications Dose Ordered Sig/Maria Isabel Route Start Time Stop Time Status Last Admin Dose Admin Ondansetron HCl 4 mg Q4HP PRN IV 04/16/24 21:00 Enoxaparin Sodium 40 mg DAILY SC 04/17/24 10:00 04/19/24 09:03 40 MG Acetaminophen 650 mg Q6HP PRN PO 04/16/24 21:00 04/17/24 17:07 650 MG Morphine Sulfate 2 mg Q4HPRN PRN IV 04/16/24 21:00 04/19/24 06:48 2 MG Nitroglycerin 0.4 mg Q5MINP PRN SL 04/16/24 21:00 Morphine Sulfate 2 mg Q30M PRN IV 04/16/24 21:00 Ceftriaxone Sodium 50 ml @ 100 mls/hr DAILY IV 04/18/24 10:00 04/19/24 08:12 100 MLS/HR Metronidazole 100 ml @ 100 mls/hr DAILY IV 04/18/24 10:00 04/19/24 09:02 100 MLS/HR Pantoprazole Sodium 40 mg DAILY IV 04/17/24 10:00 04/19/24 09:02 40 MG Hydralazine HCl 10 mg Q6HP PRN IV 04/16/24 21:30 Oseltamivir Phosphate 30 mg Q12HR PO 04/17/24 22:00 04/22/24 21:59 04/19/24 09:02 30 MG Sodium Chloride 1,000 ml @ 125 mls/hr Q8H IV 04/18/24 09:30 04/19/24 08:12 125 MLS/HR laboratory and microbiology Laboratory Tests 04/19/24 11:10 Test 04/19/24 11:10 Range/Units Serum Glucose 73 L 74-106 mg/dL Microbiology Date/Time Source Procedure Growth Status 04/18/24 10:59 Blood Blood Culture - Preliminary NO GROWTH AFTER 24 HOURS OF INCUBATION. Resulted 04/18/24 05:59 Voided Urine Urine Culture - Preliminary Resulted Problem List/Assessment/Plan Problem List/Assessment/Plan AFEBRILE VSS ABD SOFT LESS PAIN MRCP PENDING WBC DOWN LFT ALKP ELEVATED CONTINUE CLOSE OBSERVATION Plan discussed with: Patient My Orders My Orders Orders - KIARA LINARES MD Procedure Category Date Status Time Npo Except For SANTIAGO 04/18/24 In Process Medications 20:45 KIARA LINARES MD Apr 19, 2024 17:13
--- NOTE | 2024-04-19 22:58 | DVHPN2 ---
Progress Note - Dictate Date Seen: Apr 19, 2024 Medical Necessity Reason Pt with a Central, PICC or Fol: No Subjective Patient seen and examined at bedside. Remains on supplemental oxygen Overnight events reviewed. vital signs Vital Sign Date Time Temp Pulse Resp B/P (MAP) Pulse Ox O2 Delivery O2 Flow Rate FiO2 04/19/24 21:00 98.3 72 18 143/48 (79) 97 98.3 04/19/24 19:54 Nasal Cannula* 2 28 Total Intake and Output 04/18/24 04/18/24 04/19/24 15:00 23:00 07:00 Intake Total 650 ml 1875 ml 1000 ml Output Total 150 ml Balance 650 ml 1725 ml 1000 ml medications Current Medications Medications Dose Ordered Sig/Maria Isabel Route Start Time Stop Time Status Last Admin Dose Admin Ondansetron HCl 4 mg Q4HP PRN IV 04/16/24 21:00 Enoxaparin Sodium 40 mg DAILY SC 04/17/24 10:00 04/19/24 09:03 40 MG Acetaminophen 650 mg Q6HP PRN PO 04/16/24 21:00 04/19/24 20:46 650 MG Morphine Sulfate 2 mg Q4HPRN PRN IV 04/16/24 21:00 04/19/24 06:48 2 MG Nitroglycerin 0.4 mg Q5MINP PRN SL 04/16/24 21:00 Morphine Sulfate 2 mg Q30M PRN IV 04/16/24 21:00 Ceftriaxone Sodium 50 ml @ 100 mls/hr DAILY IV 04/18/24 10:00 04/19/24 08:12 100 MLS/HR Metronidazole 100 ml @ 100 mls/hr DAILY IV 04/18/24 10:00 04/19/24 09:02 100 MLS/HR Pantoprazole Sodium 40 mg DAILY IV 04/17/24 10:00 04/19/24 09:02 40 MG Hydralazine HCl 10 mg Q6HP PRN IV 04/16/24 21:30 Oseltamivir Phosphate 30 mg Q12HR PO 04/17/24 22:00 04/22/24 21:59 04/19/24 21:49 30 MG Sodium Chloride 1,000 ml @ 125 mls/hr Q8H IV 04/18/24 09:30 04/19/24 18:10 125 MLS/HR objective Gen.: Patient lying in bed in no apparent distress. On supplemental oxygen. Head: Normocephalic, atraumatic. Eyes: EOMI/PERRLA. Ears: Normal hearing. Normal anatomy. Neck/trachea: Trachea midline, supple. Nose: Normal external anatomy. Mouth: Moist mucous membranes. Chest: Decreased air entry bilaterally. No wheezing or rhonchi. Cardiovascular: Positive S1, positive S2. Regular rate and rhythm. Abdomen: Positive bowel sounds in all 4 quadrants. Soft, non-tender, non- distended. : Deferred. Rectal: Deferred. Skin: Warm, dry. Intact. Extremities: 2+ radial pulses bilaterally. No lower extremity edema. Neuro: Awake, alert, oriented x3. No gross motor or sensory deficits. Cranial nerves II through XII intact. Gait not assessed. laboratory and microbiology Laboratory Tests 04/19/24 11:10 Test 04/19/24 11:10 Range/Units Serum Glucose 73 L 74-106 mg/dL Assessment/Plan Impression: Acute cholecystitis Hypoxemia Atelectasis Influenza COVID-19 Morbid obesity Events: Remains on supplemental oxygen, 2 LPM NC Taper O2 as tolerated Obtain MRCP Obtain Surgery consult Continue antibiotics Tamiflu course Incentive spirometry WBC improving GI recs appreciated. IV fluids with NS at 125 ml/hr. Monitor renal function. Monitor electrolytes. Supplement as necessary. Labs and imaging reviewed. Rest of plan as noted below. Plan: Supplemental oxygen Titrate to keep O2 sats above 92%. Tamiflu full course Continue antibiotics IS Pain control Avoid oversedation Monitor renal function. Monitor electrolytes. Supplement as necessary. DVT prophylaxis Prognosis: Guarded given patient's multiple co-morbidities. Rest of plan per hospitalist and other consultants. Thank you, Dr. Diana, for allowing me to participate in this patient's care. Further recommendations will depend on the patient's clinical course. Please do not hesitate to contact me if you have any questions or concerns. This medical document was created using an electronic medical record system with [employer] dictation system. Although these documentations are being carefully reviewed, there may still be some phonetic and typographical changes. The errors are purely typographical, due to imperfection on the software program, and do not reflect any compromise in the patient's medical care. Plan discussed with: Patient, Other (ESAU De La Rosa) ANUSHA CIFUENTES MD Apr 19, 2024 22:58
[2024-04-20] MEDS: hydrALAZINE HCL 20 MG/ML VL IV PRN (04:29)
[2024-04-20 05:00] VITALS: BP_SYST 156; BP_SYST 172; BP_DIAS 53; BP_DIAS 56; PULSE 78; RESP 20; TEMP 97.8; O2SAT 91
[2024-04-20 06:26] LABS: Basophils # (auto) 0 10 ^3/uL (0-0.2); Basophils % (auto) 0.3 % (0.0-2.0); Eosinophils # (auto) 0.1 10 ^3/uL (0-0.8); Eosinophils % (auto) 1.2 % (0.0-7.0); Hematocrit 38.1 % (36.0-46.0); Hemoglobin 12.3 g/dL (12.2-16.2); Lymphocytes # (auto) 0.4 10 ^3/uL (0.4-5.4); Lymphocytes % (auto) 3.9 % (10.0-50.0); Mean Corpuscular Hgb Conc. 32.3 g/dL (32.0-36.0); Mean Corpuscular Volume 89.6 fL (80.0-100.0); Monocytes # (auto) 0.9 10 ^3/uL (0-1.3); Monocytes % (auto) 7.8 % (0.0-12.0); Neutrophils # (auto) 9.7 10 ^3/uL (1.6-8.6); Neutrophils % (auto) 86.8 % (37.0-80.0); Nucleated Red Blood Cells % 0.1 %; Platelet Count (auto) 209 10^3/uL (140-450); Red Blood Cells 4.25 10^6/uL (4.0-5.20); Red Cell Distribution Width 14.5 % (11.8-14.3); White Blood Cell 11.1 10^3/uL (4.4-10.8)
[2024-04-20 06:31] LABS: Alanine Aminotransferase 15 U/L (7-40); Albumin 3.3 g/dL (3.2-4.8); Anion Gap 10 (5-15); Aspartate Aminotransferase 20 U/L (13-40); BUN/Creatinine Ratio 35.5 (10.0-20.0); Calcium 9.3 mg/dL (8.7-10.4); Carbon Dioxide 21 mmol/L (20-31); Magnesium 2.1 mg/dL (1.6-2.6); Sodium 141 mmol/L (136-145)
[2024-04-20 06:33] LABS: Bilirubin, Total 0.4 mg/dL (0.2-1.0)
[2024-04-20 06:41] LABS: Alkaline Phosphatase 143 U/L (46-116); Blood Urea Nitrogen 38 mg/dL (9-23); Chloride 110 mmol/L (98-107); Glucose 139 mg/dL (74-106); Potassium 3.2 mmol/L (3.5-5.1)
[2024-04-20 08:20] VITALS: PULSE 95; RESP 18; O2SAT 97
[2024-04-20 09:00] VITALS: BP 152/62; PULSE 83; RESP 20; TEMP 98.6; O2SAT 97
[2024-04-20 10:00] LABS: Hepatitis C Antibody Negative (Negative)
[2024-04-20] MEDS: POTASSIUM CHL 20 Meq TABLET PO ONE (10:01)
--- NOTE | 2024-04-20 10:47 | DVHPN2 ---
Subjective She is still symptomatic with the abdominal pain especially after she had the liquid diet Changes from previous H/P or p: Changes Eyes: No Pain, No Vision change, No Conjunctivae inflammation, No Eyelid inflammation, No Other, No Redness ENT: No Ear pain, No Ear discharge, No Nose pain, No Nose discharge, No Nose congestion, No Mouth pain, No Mouth swelling, No Throat pain, No Throat swelling, No Other Cardiovascular: No Chest Pain, No Palpitations, No Orthopnea, No Paroxysmal Noc. Dyspnea, No Edema, No Lt Headedness, No Other Respiratory: No Cough, No Dry, No Shortness of breath, No SOB with excertion, No Wheezing, No Hemoptysis, No Pleuritic Pain, No Sputum, No Other Gastrointestinal: Nausea, Vomiting, Abdominal Pain Genitourinary: No Dysuria, No Frequency, No Incontinence, No Hematuria, No Retention, No Other Musculoskeletal: No other, No neck pain, No shoulder pain, No arm pain, No back pain, No hand pain, No leg pain, No foot pain Skin: No Rash, No Lesions, No Jaundice, No Bruising, No Other Objective Vitals Vital Signs Date Time Temp Pulse Resp B/P (MAP) Pulse Ox O2 Delivery O2 Flow Rate FiO2 04/20/24 09:00 98.6 83 20 152/62 (92) 97 98.6 04/19/24 19:54 Nasal Cannula* 2 28 Intake/Output Intake and Output 04/20/24 07:00 Intake Total 3625 ml Output Total 800 ml Balance 2825 ml Intake Oral 1350 ml IV Total 2275 ml Output Urine Total 800 ml # Voids 3 # Bowel Movements 4 General Appearance: Alert, Oriented X3, Cooperative, No acute distress Lungs: Clear to auscultation, Normal air movement Cardiovascular: Regular rate, Normal S1, Normal S2 Abdomen: Normal bowel sounds, Soft, Other (Moderate tenderness in the right upper quadrant) Extremities: No edema Medications Current Medications Medications Dose Ordered Sig/Maria Isabel Route Start Time Stop Time Status Last Admin Dose Admin Ondansetron HCl 4 mg Q4HP PRN IV 04/16/24 21:00 Enoxaparin Sodium 40 mg DAILY SC 04/17/24 10:00 04/20/24 10:17 40 MG Acetaminophen 650 mg Q6HP PRN PO 04/16/24 21:00 04/19/24 20:46 650 MG Morphine Sulfate 2 mg Q4HPRN PRN IV 04/16/24 21:00 04/19/24 06:48 2 MG Nitroglycerin 0.4 mg Q5MINP PRN SL 04/16/24 21:00 Morphine Sulfate 2 mg Q30M PRN IV 04/16/24 21:00 Ceftriaxone Sodium 50 ml @ 100 mls/hr DAILY IV 04/18/24 10:00 04/20/24 10:01 100 MLS/HR Metronidazole 100 ml @ 100 mls/hr DAILY IV 04/18/24 10:00 04/19/24 09:02 100 MLS/HR Pantoprazole Sodium 40 mg DAILY IV 04/17/24 10:00 04/20/24 10:01 40 MG Hydralazine HCl 10 mg Q6HP PRN IV 04/16/24 21:30 04/20/24 04:29 10 MG Oseltamivir Phosphate 30 mg Q12HR PO 04/17/24 22:00 04/22/24 21:59 04/20/24 10:01 30 MG Sodium Chloride 1,000 ml @ 125 mls/hr Q8H IV 04/18/24 09:30 04/20/24 03:55 125 MLS/HR Laboratory Results Laboratory Tests 04/20/24 05:05 Chemistry Test 04/19/24 11:10 04/20/24 05:05 Albumin 3.3 g/dL (3.2-4.8) 3.3 g/dL (3.2-4.8) Calcium Level 9.1 mg/dL (8.7-10.4) 9.3 mg/dL (8.7-10.4) Magnesium Level 2.2 mg/dL (1.6-2.6) 2.1 mg/dL (1.6-2.6) Total Protein 5.8 g/dL (5.7-8.2) 6.0 g/dL (5.7-8.2) LFT Test 04/19/24 11:10 04/20/24 05:05 Alanine Aminotransferase (ALT) 13 U/L (7-40) 15 U/L (7-40) Alkaline Phosphatase 130 U/L (46-116) H 143 U/L (46-116) H Aspartate Amino Transferase (AST) 26 U/L (13-40) 20 U/L (13-40) Total Bilirubin 0.4 mg/dL (0.2-1.0) 0.4 mg/dL (0.2-1.0) Urinalysis Test 04/16/24 17:32 Urine Color Yellow (Yellow) Urine Clarity Clear (Clear) Urine pH 6.5 (5.0-9.0) Urine Specific [place] 1.033 (1.001-1.035) Urine Protein 3+ (Negative) H Urine Ketones 1+ (Negative) H Urine Blood 2+ /uL (Negative) H Urine Nitrite Negative (Negative) Urine Bilirubin Negative (Negative) Urine Urobilinogen Normal mg/dL (Negative) Urine Leukocyte Esterase Trace /uL (Negative) Urine RBC 16 /hpf (0 - 4) Urine Microscopic WBC 29 /HPF (0-5) H Urine Squamous Epithelial Cells Few /hpf (<5) Urine Bacteria None seen /hpf (None Seen) Urine Glucose 4+ mg/dL (Normal) H Microbiology Microbiology Date/Time Source Procedure Growth Status 04/18/24 10:59 Blood Blood Culture - Preliminary NO GROWTH AFTER 24 HOURS OF INCUBATION. Resulted 04/18/24 05:59 Voided Urine Urine Culture - Preliminary Resulted Assessment/Plan Assessment/Plan Acute cholecystitis Influenza a and B COVID positive Sepsis UTI Hypertension Hypertensive urgency Morbid obesity Plan Keep NPO Surgical consult is on IV antibiotics with Rocephin and Flagyl Lovenox Tamiflu for the influenza Oxygen as needed Protonix IV Pain management as needed Full code Advance directives discussed for 16 minutes 04/18/2024: REBEKA hemodynamically mediated: Increase the IV fluids Dehydration: Increase the IV fluids Keep NPO Surgical consult is following IV antibiotics Tamiflu Oxygen as needed Pulmonary consult Full code Monitor closely 04/19/24: Clear liquids MRCP pending Discussed with Dr. Elena Rees, will need MRCP hen surgery Recheck for COVID and influenza again Continue IV antibiotics IV fluids Tamiflu 04/20/2024: Continue clear liquid diet MRCP pending The patient is still positive for COVID and influenza and therefore she can not have the MRCP or the surgery yet General surgery is on board and following until she is cleared from the infection and sepsis Continue the IV antibiotics Continue IV fluids Continue Tamiflu Plan discussed with: Patient Date of Service: Apr 20, 2024 Billing Provider: JAMES PECK MD Common Visit Codes: [id number] INP/OBS CARE(HIGH) JAMES PECK MD Apr 20, 2024 10:47
[2024-04-20 13:00] VITALS: BP 165/59; PULSE 73; RESP 18; TEMP 98.2; O2SAT 98
--- NOTE | 2024-04-20 14:51 | DVHPN2 ---
Progress Note Date Seen: Apr 20, 2024 Medical Necessity Reason Pt with a Central, PICC or Fol: No Objective vital signs Vital Sign Date Time Temp Pulse Resp B/P (MAP) Pulse Ox O2 Delivery O2 Flow Rate FiO2 04/20/24 13:00 98.2 73 18 165/59 (94) 98 98.2 04/20/24 08:20 Nasal Cannula* 2 28 Total Intake and Output 04/19/24 04/19/24 04/20/24 15:00 23:00 07:00 Intake Total 150 ml 1900 ml 1575 ml Output Total 800 ml Balance 150 ml 1100 ml 1575 ml medications Current Medications Medications Dose Ordered Sig/Maria Isabel Route Start Time Stop Time Status Last Admin Dose Admin Ondansetron HCl 4 mg Q4HP PRN IV 04/16/24 21:00 Enoxaparin Sodium 40 mg DAILY SC 04/17/24 10:00 04/20/24 10:17 40 MG Acetaminophen 650 mg Q6HP PRN PO 04/16/24 21:00 04/19/24 20:46 650 MG Morphine Sulfate 2 mg Q4HPRN PRN IV 04/16/24 21:00 04/20/24 12:15 2 MG Nitroglycerin 0.4 mg Q5MINP PRN SL 04/16/24 21:00 Morphine Sulfate 2 mg Q30M PRN IV 04/16/24 21:00 Ceftriaxone Sodium 50 ml @ 100 mls/hr DAILY IV 04/18/24 10:00 04/20/24 10:01 100 MLS/HR Metronidazole 100 ml @ 100 mls/hr DAILY IV 04/18/24 10:00 04/20/24 12:10 100 MLS/HR Pantoprazole Sodium 40 mg DAILY IV 04/17/24 10:00 04/20/24 10:01 40 MG Hydralazine HCl 10 mg Q6HP PRN IV 04/16/24 21:30 04/20/24 04:29 10 MG Oseltamivir Phosphate 30 mg Q12HR PO 04/17/24 22:00 04/22/24 21:59 04/20/24 10:01 30 MG Sodium Chloride 1,000 ml @ 125 mls/hr Q8H IV 04/18/24 09:30 04/20/24 03:55 125 MLS/HR laboratory and microbiology Laboratory Tests 04/20/24 05:05 Test 2/18/25 05:05 Range/Units Serum Glucose 139 H 74-106 mg/dL Microbiology Date/Time Source Procedure Growth Status 04/18/24 10:59 Blood Blood Culture - Preliminary NO GROWTH AFTER 48 HOURS OF INCUBATION. Resulted 04/18/24 05:59 Voided Urine Urine Culture - Final Complete Problem List/Assessment/Plan Problem List/Assessment/Plan AFEBRILE VSS ABD SOFT LESS PAIN MRCP PENDING WBC DOWN LFT ALKP ELEVATED CONTINUE CLOSE OBSERVATION HIGH RISK FOR SURGERY CONSIDER IR CHOLECYSTOSTOMY INDICATED Plan discussed with: Patient My Orders My Orders Orders - KIARA LINARES MD Procedure Category Date Status Time Full Liq Diet DIET 04/19/24 Transmitted Dinner Advance Diet As SANTIAGO 04/19/24 In Process Tolerated 17:17 KIARA LINARES MD Apr 20, 2024 14:51
[2024-04-20 17:00] VITALS: BP 156/47; PULSE 78; RESP 20; TEMP 98.2; O2SAT 93
--- NOTE | 2024-04-20 20:42 | DVHPN2 ---
Progress Note - Dictate Date Seen: Apr 20, 2024 Medical Necessity Reason Pt with a Central, PICC or Fol: No Subjective Patient seen and examined at bedside. Remains on supplemental oxygen Overnight events reviewed. vital signs Vital Sign Date Time Temp Pulse Resp B/P (MAP) Pulse Ox O2 Delivery O2 Flow Rate FiO2 04/20/24 20:00 Nasal Cannula* 2 28 04/20/24 18:08 78 16 165/52 04/20/24 17:00 98.2 93 98.2 Total Intake and Output 04/19/24 04/19/24 04/20/24 15:00 23:00 07:00 Intake Total 150 ml 1900 ml 1575 ml Output Total 800 ml Balance 150 ml 1100 ml 1575 ml medications Current Medications Medications Dose Ordered Sig/Maria Isabel Route Start Time Stop Time Status Last Admin Dose Admin Ondansetron HCl 4 mg Q4HP PRN IV 04/16/24 21:00 Enoxaparin Sodium 40 mg DAILY SC 04/17/24 10:00 04/20/24 10:17 40 MG Acetaminophen 650 mg Q6HP PRN PO 04/16/24 21:00 04/19/24 20:46 650 MG Morphine Sulfate 2 mg Q4HPRN PRN IV 04/16/24 21:00 04/20/24 17:38 2 MG Nitroglycerin 0.4 mg Q5MINP PRN SL 04/16/24 21:00 Morphine Sulfate 2 mg Q30M PRN IV 04/16/24 21:00 Ceftriaxone Sodium 50 ml @ 100 mls/hr DAILY IV 04/18/24 10:00 04/20/24 10:01 100 MLS/HR Metronidazole 100 ml @ 100 mls/hr DAILY IV 04/18/24 10:00 04/20/24 12:10 100 MLS/HR Pantoprazole Sodium 40 mg DAILY IV 04/17/24 10:00 04/20/24 10:01 40 MG Hydralazine HCl 10 mg Q6HP PRN IV 04/16/24 21:30 04/20/24 04:29 10 MG Oseltamivir Phosphate 30 mg Q12HR PO 04/17/24 22:00 04/22/24 21:59 04/20/24 10:01 30 MG Sodium Chloride 1,000 ml @ 125 mls/hr Q8H IV 04/18/24 09:30 04/20/24 03:55 125 MLS/HR objective Gen.: Patient lying in bed in no apparent distress. On supplemental oxygen. Head: Normocephalic, atraumatic. Eyes: EOMI/PERRLA. Ears: Normal hearing. Normal anatomy. Neck/trachea: Trachea midline, supple. Nose: Normal external anatomy. Mouth: Moist mucous membranes. Chest: Decreased air entry bilaterally. No wheezing or rhonchi. Cardiovascular: Positive S1, positive S2. Regular rate and rhythm. Abdomen: Positive bowel sounds in all 4 quadrants. Soft, non-tender, non- distended. : Deferred. Rectal: Deferred. Skin: Warm, dry. Intact. Extremities: 2+ radial pulses bilaterally. No lower extremity edema. Neuro: Awake, alert, oriented x3. No gross motor or sensory deficits. Cranial nerves II through XII intact. Gait not assessed. laboratory and microbiology Laboratory Tests 04/20/24 05:05 Test 04/20/24 05:05 Range/Units Serum Glucose 139 H 74-106 mg/dL Assessment/Plan Impression: Acute cholecystitis Hypoxemia Atelectasis Influenza COVID-19 Morbid obesity Events: Remains on supplemental oxygen, 2 LPM NC Taper O2 as tolerated Continue antibiotics - ceftriaxone/metronidazole Tamiflu course Incentive spirometry WBC improving GI recs appreciated. MRCP pending Follow up Surgery recommendations IV fluids with NS at 125 ml/hr. Monitor renal function. Monitor electrolytes. Supplement as necessary. GI prophylaxis w/ Protonix DVT prophylaxis w/ Lovenox Labs and imaging reviewed. Rest of plan as noted below. Plan: Supplemental oxygen Titrate to keep O2 sats above 92%. Tamiflu full course Continue antibiotics IS Pain control Avoid oversedation Monitor renal function. Monitor electrolytes. Supplement as necessary. GI prophylaxis - Protonix DVT prophylaxis - Lovenox Prognosis: Guarded given patient's multiple co-morbidities. Rest of plan per hospitalist and other consultants. Thank you, Dr. Diana, for allowing me to participate in this patient's care. Further recommendations will depend on the patient's clinical course. Please do not hesitate to contact me if you have any questions or concerns. This medical document was created using an electronic medical record system with [employer] dictation system. Although these documentations are being carefully reviewed, there may still be some phonetic and typographical changes. The errors are purely typographical, due to imperfection on the software program, and do not reflect any compromise in the patient's medical care. Plan discussed with: Patient, Other (RN Don) ANUSHA CIFUENTES MD Apr 20, 2024 20:42
[2024-04-20 21:00] VITALS: BP 130/64; PULSE 82; RESP 18; TEMP 98.5; O2SAT 95
[2024-04-21] VITALS (8 sets, daily range): BP systolic 132–191; BP diastolic 58–83; PULSE 61–96; RESP 16–19; TEMP 97.5–98.2; O2SAT 93–99
[2024-04-21] MEDS: POTASSIUM CHL 20 Meq TABLET PO ONE (09:17)
--- NOTE | 2024-04-21 11:45 | DVHPN2 ---
Subjective Still symptomatic with abdominal pain Potassium is low 3.2 Changes from previous H/P or p: Changes Eyes: No Pain, No Vision change, No Conjunctivae inflammation, No Eyelid inflammation, No Other, No Redness ENT: No Ear pain, No Ear discharge, No Nose pain, No Nose discharge, No Nose congestion, No Mouth pain, No Mouth swelling, No Throat pain, No Throat swelling, No Other Cardiovascular: No Chest Pain, No Palpitations, No Orthopnea, No Paroxysmal Noc. Dyspnea, No Edema, No Lt Headedness, No Other Respiratory: No Cough, No Dry, No Shortness of breath, No SOB with excertion, No Wheezing, No Hemoptysis, No Pleuritic Pain, No Sputum, No Other Gastrointestinal: Nausea, Vomiting, Abdominal Pain Genitourinary: No Dysuria, No Frequency, No Incontinence, No Hematuria, No Retention, No Other Musculoskeletal: No other, No neck pain, No shoulder pain, No arm pain, No back pain, No hand pain, No leg pain, No foot pain Skin: No Rash, No Lesions, No Jaundice, No Bruising, No Other Objective Vitals Vital Signs Date Time Temp Pulse Resp B/P (MAP) Pulse Ox O2 Delivery O2 Flow Rate FiO2 04/21/24 11:20 77 18 191/83 04/21/24 09:00 98.2 96 98.2 04/20/24 20:00 Nasal Cannula* 2 28 Intake/Output Intake and Output 04/21/24 07:00 Intake Total 2965 ml Output Total 675 ml Balance 2290 ml Intake Oral 2440 ml IV Total 525 ml Output Urine Total 675 ml # Voids 2 # Bowel Movements 1 General Appearance: Alert, Oriented X3, Cooperative, No acute distress Lungs: Clear to auscultation, Normal air movement Cardiovascular: Regular rate, Normal S1, Normal S2 Abdomen: Normal bowel sounds, Soft, Other (Moderate tenderness in the right upper quadrant) Extremities: No edema Medications Current Medications Medications Dose Ordered Sig/Maria Isabel Route Start Time Stop Time Status Last Admin Dose Admin Ondansetron HCl 4 mg Q4HP PRN IV 04/16/24 21:00 Enoxaparin Sodium 40 mg DAILY SC 04/17/24 10:00 04/21/24 09:18 40 MG Acetaminophen 650 mg Q6HP PRN PO 04/16/24 21:00 04/20/24 21:53 650 MG Morphine Sulfate 2 mg Q4HPRN PRN IV 04/16/24 21:00 04/21/24 09:29 2 MG Nitroglycerin 0.4 mg Q5MINP PRN SL 04/16/24 21:00 Morphine Sulfate 2 mg Q30M PRN IV 04/16/24 21:00 Ceftriaxone Sodium 50 ml @ 100 mls/hr DAILY IV 04/18/24 10:00 04/21/24 09:19 100 MLS/HR Metronidazole 100 ml @ 100 mls/hr DAILY IV 04/18/24 10:00 04/21/24 11:01 100 MLS/HR Pantoprazole Sodium 40 mg DAILY IV 04/17/24 10:00 04/21/24 09:17 40 MG Hydralazine HCl 10 mg Q6HP PRN IV 04/16/24 21:30 04/21/24 11:15 10 MG Oseltamivir Phosphate 30 mg Q12HR PO 04/17/24 22:00 04/22/24 21:59 04/21/24 09:16 30 MG Sodium Chloride 1,000 ml @ 125 mls/hr Q8H IV 04/18/24 09:30 04/20/24 03:55 125 MLS/HR Laboratory Results Laboratory Tests 04/20/24 05:05 Urinalysis Test 04/16/24 17:32 Urine Color Yellow (Yellow) Urine Clarity Clear (Clear) Urine pH 6.5 (5.0-9.0) Urine Specific [place] 1.033 (1.001-1.035) Urine Protein 3+ (Negative) H Urine Ketones 1+ (Negative) H Urine Blood 2+ /uL (Negative) H Urine Nitrite Negative (Negative) Urine Bilirubin Negative (Negative) Urine Urobilinogen Normal mg/dL (Negative) Urine Leukocyte Esterase Trace /uL (Negative) Urine RBC 16 /hpf (0 - 4) Urine Microscopic WBC 29 /HPF (0-5) H Urine Squamous Epithelial Cells Few /hpf (<5) Urine Bacteria None seen /hpf (None Seen) Urine Glucose 4+ mg/dL (Normal) H Microbiology Microbiology Date/Time Source Procedure Growth Status 04/18/24 10:59 Blood Blood Culture - Preliminary NO GROWTH AFTER 72 HOURS OF INCUBATION. Resulted 04/18/24 05:59 Voided Urine Urine Culture - Final Complete Assessment/Plan Assessment/Plan Acute cholecystitis Influenza a and B COVID positive Sepsis UTI Hypertension Hypertensive urgency Morbid obesity Plan Keep NPO Surgical consult is on IV antibiotics with Rocephin and Flagyl Lovenox Tamiflu for the influenza Oxygen as needed Protonix IV Pain management as needed Full code Advance directives discussed for 16 minutes 04/18/2024: REBEKA hemodynamically mediated: Increase the IV fluids Dehydration: Increase the IV fluids Keep NPO Surgical consult is following IV antibiotics Tamiflu Oxygen as needed Pulmonary consult Full code Monitor closely 04/19/24: Clear liquids MRCP pending Discussed with Dr. Elena Rees, will need MRCP hen surgery Recheck for COVID and influenza again Continue IV antibiotics IV fluids Tamiflu 04/20/2024: Continue clear liquid diet MRCP pending The patient is still positive for COVID and influenza and therefore she can not have the MRCP or the surgery yet General surgery is on board and following until she is cleared from the infection and sepsis Continue the IV antibiotics Continue IV fluids Continue Tamiflu 04/21/2024: Continue clear liquid diet Continue IV antibiotics Continue IV fluids Continue Tamiflu General surgery is seeing the patient and recommends an MRCP however it can not be done until she is negative for COVID and influenza Plan discussed with: Patient Date of Service: Apr 21, 2024 Billing Provider: JAMES PECK MD Common Visit Codes: [id number] INP/OBS CARE(HIGH) JAMES PECK MD Apr 21, 2024 11:45
[2024-04-21] MEDS: LOSARTAN POTASSIUM 50 MG TAB PO ONE (13:56)
--- NOTE | 2024-04-21 22:07 | DVHPN2 ---
Progress Note - Dictate Date Seen: Apr 21, 2024 Medical Necessity Reason Pt with a Central, PICC or Fol: No Subjective Patient seen and examined at bedside. Remains on supplemental oxygen Overnight events reviewed. vital signs Vital Sign Date Time Temp Pulse Resp B/P (MAP) Pulse Ox O2 Delivery O2 Flow Rate FiO2 04/21/24 21:26 185/78 04/21/24 20:00 Nasal Cannula* 2 28 04/21/24 17:11 97.7 76 17 93 97.7 Total Intake and Output 04/20/24 04/20/24 04/21/24 15:00 23:00 07:00 Intake Total 870 ml 1895 ml 200 ml Output Total 675 ml Balance 870 ml 1220 ml 200 ml medications Current Medications Medications Dose Ordered Sig/Maria Isabel Route Start Time Stop Time Status Last Admin Dose Admin Ondansetron HCl 4 mg Q4HP PRN IV 04/16/24 21:00 Enoxaparin Sodium 40 mg DAILY SC 04/17/24 10:00 04/21/24 09:18 40 MG Acetaminophen 650 mg Q6HP PRN PO 04/16/24 21:00 04/20/24 21:53 650 MG Morphine Sulfate 2 mg Q4HPRN PRN IV 04/16/24 21:00 04/21/24 09:29 2 MG Nitroglycerin 0.4 mg Q5MINP PRN SL 04/16/24 21:00 Morphine Sulfate 2 mg Q30M PRN IV 04/16/24 21:00 Ceftriaxone Sodium 50 ml @ 100 mls/hr DAILY IV 04/18/24 10:00 04/21/24 09:19 100 MLS/HR Metronidazole 100 ml @ 100 mls/hr DAILY IV 04/18/24 10:00 04/21/24 11:01 100 MLS/HR Pantoprazole Sodium 40 mg DAILY IV 04/17/24 10:00 04/21/24 09:17 40 MG Hydralazine HCl 10 mg Q6HP PRN IV 04/16/24 21:30 04/21/24 21:26 10 MG Oseltamivir Phosphate 30 mg Q12HR PO 04/17/24 22:00 04/22/24 21:59 04/21/24 21:12 30 MG Sodium Chloride 1,000 ml @ 125 mls/hr Q8H IV 04/18/24 09:30 04/20/24 03:55 125 MLS/HR Losartan Potassium 100 mg DAILY PO 04/22/24 10:00 objective Gen.: Patient lying in bed in no apparent distress. On supplemental oxygen. Head: Normocephalic, atraumatic. Eyes: EOMI/PERRLA. Ears: Normal hearing. Normal anatomy. Neck/trachea: Trachea midline, supple. Nose: Normal external anatomy. Mouth: Moist mucous membranes. Chest: Decreased air entry bilaterally. No wheezing or rhonchi. Cardiovascular: Positive S1, positive S2. Regular rate and rhythm. Abdomen: Positive bowel sounds in all 4 quadrants. Soft, non-tender, non- distended. : Deferred. Rectal: Deferred. Skin: Warm, dry. Intact. Extremities: 2+ radial pulses bilaterally. No lower extremity edema. Neuro: Awake, alert, oriented x3. No gross motor or sensory deficits. Cranial nerves II through XII intact. Gait not assessed. laboratory and microbiology Laboratory Tests 04/20/24 05:05 Test 04/20/24 05:05 Range/Units Serum Glucose 139 H 74-106 mg/dL Assessment/Plan Impression: Acute cholecystitis Hypoxemia Atelectasis Influenza COVID-19 Morbid obesity Events: Remains on supplemental oxygen, 2 LPM NC Taper O2 as tolerated Continue antibiotics - ceftriaxone/metronidazole Tamiflu course Incentive spirometry Monitor BP due to hypertension - started on Losartan WBC improving GI recs appreciated. MRCP pending Follow up Surgery recommendations IV fluids with NS at 125 ml/hr. Monitor renal function. Monitor electrolytes. Supplement as necessary. Potassium supplementation GI prophylaxis w/ Protonix DVT prophylaxis w/ Lovenox Labs and imaging reviewed. Rest of plan as noted below. Plan: Supplemental oxygen Titrate to keep O2 sats above 92%. Tamiflu full course Continue antibiotics IS Monitor renal function. Monitor electrolytes. Supplement as necessary. GI prophylaxis - Protonix DVT prophylaxis - Lovenox Prognosis: Guarded given patient's multiple co-morbidities. Rest of plan per hospitalist and other consultants. Thank you, Dr. Diana, for allowing me to participate in this patient's care. Further recommendations will depend on the patient's clinical course. Please do not hesitate to contact me if you have any questions or concerns. This medical document was created using an electronic medical record system with [employer] dictation system. Although these documentations are being carefully reviewed, there may still be some phonetic and typographical changes. The errors are purely typographical, due to imperfection on the software program, and do not reflect any compromise in the patient's medical care. Plan discussed with: Patient, Other (ESAU Steiner) ANUSHA CIFUENTES MD Apr 21, 2024 22:07
[2024-04-22] VITALS (7 sets, daily range): BP systolic 149–187; BP diastolic 54–77; PULSE 73–82; RESP 17–20; TEMP 97.1–97.8; O2SAT 91–94
[2024-04-22 05:43] LABS: Basophils # (auto) 0 10 ^3/uL (0-0.2); Basophils % (auto) 0.4 % (0.0-2.0); Eosinophils # (auto) 0.2 10 ^3/uL (0-0.8); Eosinophils % (auto) 1.8 % (0.0-7.0); Hematocrit 36.1 % (36.0-46.0); Hemoglobin 12.3 g/dL (12.2-16.2); Lymphocytes # (auto) 0.9 10 ^3/uL (0.4-5.4); Lymphocytes % (auto) 8.6 % (10.0-50.0); Mean Corpuscular Hemoglobin 30.1 pg (28.0-32.0); Mean Corpuscular Hgb Conc. 34.2 g/dL (32.0-36.0); Mean Corpuscular Volume 88.1 fL (80.0-100.0); Monocytes # (auto) 0.9 10 ^3/uL (0-1.3); Monocytes % (auto) 8.7 % (0.0-12.0); Neutrophils # (auto) 8.1 10 ^3/uL (1.6-8.6); Neutrophils % (auto) 80.5 % (37.0-80.0); Platelet Count (auto) 235 10^3/uL (140-450); Red Blood Cells 4.09 10^6/uL (4.0-5.20); Red Cell Distribution Width 14.3 % (11.8-14.3); White Blood Cell 10.1 10^3/uL (4.4-10.8)
[2024-04-22 06:00] LABS: Alanine Aminotransferase 13 U/L (7-40); Anion Gap 10 (5-15); BUN/Creatinine Ratio 27.2 (10.0-20.0); Blood Urea Nitrogen 22 mg/dL (9-23); Calcium 9.8 mg/dL (8.7-10.4); Carbon Dioxide 21 mmol/L (20-31); Magnesium 1.9 mg/dL (1.6-2.6); Sodium 140 mmol/L (136-145)
[2024-04-22 06:01] LABS: Albumin 3.4 g/dL (3.2-4.8); Aspartate Aminotransferase 19 U/L (13-40); Bilirubin, Total 0.4 mg/dL (0.2-1.0); Total Protein 6.1 g/dL (5.7-8.2)
[2024-04-22 06:19] LABS: Alkaline Phosphatase 127 U/L (46-116); Chloride 109 mmol/L (98-107); Glucose 158 mg/dL (74-106)
[2024-04-22] MEDS: LOSARTAN POTASSIUM 50 MG TAB PO SCH (08:49)
--- NOTE | 2024-04-22 09:29 | DVHDS2 ---
Discharge Summary Date of Admission Apr 16, 2024 at 20:57 Date of Discharge: Apr 22, 2024 Labs/Diagnostic Data: Laboratory Results Test 04/22/24 05:00 04/19/24 10:00 04/18/24 06:45 04/17/24 06:47 White Blood Count 10.1 10^3/uL (4.4-10.8) Red Blood Count 4.09 10^6/uL (4.0-5.20) Hemoglobin 12.3 g/dL (12.2-16.2) Hematocrit 36.1 % (36.0-46.0) Mean Corpuscular Volume 88.1 fL (80.0-100.0) Mean Corpuscular Hemoglobin 30.1 pg (28.0-32.0) Mean Corpuscular Hemoglobin Concent 34.2 g/dL (32.0-36.0) Red Cell Distribution Width 14.3 % (11.8-14.3) Platelet Count 235 10^3/uL (140-450) Mean Platelet Volume 8.5 fL (6.9-10.8) Neutrophils (%) (Auto) 80.5 % (37.0-80.0) Lymphocytes (%) (Auto) 8.6 % (10.0-50.0) Monocytes (%) (Auto) 8.7 % (0.0-12.0) Eosinophils (%) (Auto) 1.8 % (0.0-7.0) Basophils (%) (Auto) 0.4 % (0.0-2.0) Neutrophils # (Auto) 8.1 10 ^3/uL (1.6-8.6) Lymphocytes # (Auto) 0.9 10 ^3/uL (0.4-5.4) Monocytes # (Auto) 0.9 10 ^3/uL (0-1.3) Eosinophils # (Auto) 0.2 10 ^3/uL (0-0.8) Basophils # (Auto) 0 10 ^3/uL (0-0.2) Nucleated Red Blood Cells 0.0 % Sodium Level 140 mmol/L (136-145) Potassium Level 4.0 mmol/L (3.5-5.1) Chloride Level 109 mmol/L (98-107) Carbon Dioxide Level 21 mmol/L (20-31) Anion Gap 10 (5-15) Blood Urea Nitrogen 22 mg/dL (9-23) Creatinine 0.81 mg/dL (0.550-1.02) Glomerular Filtration Rate Calc 75 mL/min (>90) BUN/Creatinine Ratio 27.2 (10.0-20.0) Serum Glucose 158 mg/dL (74-106) Calcium Level 9.8 mg/dL (8.7-10.4) Magnesium Level 1.9 mg/dL (1.6-2.6) Total Bilirubin 0.4 mg/dL (0.2-1.0) Aspartate Amino Transferase (AST) 19 U/L (13-40) Alanine Aminotransferase (ALT) 13 U/L (7-40) Alkaline Phosphatase 127 U/L (46-116) Total Protein 6.1 g/dL (5.7-8.2) Albumin 3.4 g/dL (3.2-4.8) Influenza Type A Antigen Negative (Negative) Influenza Type B Antigen Positive (Negative) SARS-CoV-2 Antigen (Rapid) Positive (NEGATIVE) Triglycerides Level 90 mg/dL (< 150) Cholesterol Level 135 mg/dL (< 200) LDL Cholesterol 67 mg/dL (< 100) HDL Cholesterol 47 mg/dL (40-59) Lipase 20 U/L (12-53) Hepatitis B Surface Antigen Negative (Negative) Hepatitis C Antibody Negative (Negative) Test 04/17/24 00:25 04/16/24 21:19 04/16/24 18:00 04/16/24 17:32 Troponin I High Sensitivity 18 ng/L (</=34) Differential Total Cells Counted 100.0 (100) Neutrophils % (Manual) 94 (37.0-80.0) Band Neutrophils % (Manual) 0 Lymphocytes % (Manual) 3 (10.0-50.0) Monocytes % (Manual) 3 (0-12) Eosinophils % (Manual) 0 (0-7) Basophils % (Manual) 0 (0.0-2.0) Metamyelocytes % (manual) 0 Myelocytes % (Manual) 0 Promyelocytes % (Manual) 0 Blast Cells % (Manual) 0 Reactive Lymphocytes 0 Platelet Estimate Adequate Prothrombin Time 11.1 sec (9.3-11.8) Prothrombin Time INR 1.05 (0.9-1.15) Activated Partial Thromboplast Time 30.5 SEC (24.5-34.5) Hemoglobin A1c 5.6 % A1C (<5.7) Ammonia < 10 umol/L (11-32) B-Type Natriuretic Peptide 263.00 pg/mL (0-100) Plasma/Serum Blood Alcohol < 3.0 mg/dL (<10) Lactic Acid Level 2.3 mmol/L (0.4-2.0) Urine Color Yellow (Yellow) Urine Clarity Clear (Clear) Urine pH 6.5 (5.0-9.0) Urine Specific [place] 1.033 (1.001-1.035) Urine Protein 3+ (Negative) Urine Ketones 1+ (Negative) Urine Blood 2+ /uL (Negative) Urine Nitrite Negative (Negative) Urine Bilirubin Negative (Negative) Urine Urobilinogen Normal mg/dL (Negative) Urine Leukocyte Esterase Trace /uL (Negative) Urine RBC 16 /hpf (0 - 4) Urine Microscopic WBC 29 /HPF (0-5) Urine Squamous Epithelial Cells Few /hpf (<5) Urine Bacteria None seen /hpf (None Seen) Urine Glucose 4+ mg/dL (Normal) Urine Opiates Screen Neg (NEGATIVE) Urine Fentanyl Screen Neg (NEGATIVE) Urine Barbiturates Screen Neg (NEGATIVE) Urine Phencyclidine Screen Neg (NEGATIVE) Urine Amphetamines Screen Neg (NEGATIVE) Urine Benzodiazepines Screen Neg (NEGATIVE) Urine Cocaine Screen Neg (NEGATIVE) Urine Cannabinoids Screen Neg (NEGATIVE) Other Laboratory Tests 04/22/24 05:00 Brief Hx & Hospital Course: Final diagnoses: Acute cholecystitis Influenza a and B COVID positive Sepsis UTI Hypertension Hypertensive urgency Morbid obesity Acute kidney injury due to vasomotor nephropathy 79-year-old female with a history of hypertension came with a chief complaint of abdominal pain and was found to have an acute cholecystitis but it the same time she also had influenza a and B and COVID positive She also had UTI. She was treated with IV antibiotics and NPO initially Because she was positive for influenza and COVID MRCP was advised but could not be done Surgical consultation was also obtained and Dr. Stefanie Rees asked for an the MRCP to be done before surgery however that could not be done and therefore she was treated conservatively with Tamiflu for the flu and IV antibiotics for the acute cholecystitis and NPO for few days and then she was given clear liquid diet She was given IV fluids REBEKA improved with the hydration Her abdominal pain improved slowly She was advanced to full liquid diet and she is doing well Today she is doing better with very minimal abdominal pain no nausea or vomiting She is on room air She is tolerating the full liquids and therefore we will advance her to a soft diet and then she would like to go home and follow up as an outpatient Since she is not going to have the MRCP or the surgery now and she is mostly asymptomatic she can be discharged home for follow up at a later time when her COVID and influenza have resolved completely She received 10 days of Tamiflu and she received 6 days of IV antibiotics so she does not need more Continue the home medications Follow up with the primary care physician as soon as possible Stable for discharge Condition at Discharge: Stable Final Diagnosis/Problems List Acute cholecystitis Influenza a and B COVID positive Sepsis UTI Hypertension Hypertensive urgency Morbid obesity Discharge Disposition: Home SNF Discharge Will this Physician continue t: No Discharge Instruct/Medications Diet: Consistent carbohydrate, Cardiac 2g Na,low cholest Activity: No Restrictions, As Tolerated Follow Up/Referral: PCP LAURENCE Medications: Same home meds Discharge Statement: "Patient was advised to return to the ER or call 911 if any headaches, dizziness, shortness of breath, chest pain, abdominal pain, bleeding, fevers, or worsening of medical condition. Patient was counseled about treatment plan, medications, possible side effects, patientverbalized understanding. All questions were answered to the best of my ability. This discharge took greater then 30 minutes in planning, reviewing documentation, counseling the patient, and discussing with other team members." ASSESSMENT ASSESSMENT Assessment Acute cholecystitis Influenza a and B COVID positive Sepsis UTI Hypertension Hypertensive urgency Morbid obesity Date of Service: Apr 22, 2024 Billing Provider: JAMES PECK MD Common Visit Codes: [id number] DISCH DAY >30min JAMES PECK MD Apr 22, 2024 09:29
[2024-04-22] MEDS ORDERED: HYDR-4902 PO (21:11)
--- NOTE | 2024-04-22 22:33 | DVHPN2 ---
Progress Note - Dictate Date Seen: Apr 22, 2024 Medical Necessity Reason Pt with a Central, PICC or Fol: No Subjective Patient seen and examined at bedside. Currently on room air Overnight events reviewed. vital signs Vital Sign Date Time Temp Pulse Resp B/P (MAP) Pulse Ox O2 Delivery O2 Flow Rate FiO2 04/22/24 13:24 97.1 76 17 93 04/22/24 13:14 149/77 (101) 04/22/24 08:00 Room Air* 0 21 Total Intake and Output 04/21/24 04/21/24 04/22/24 15:00 23:00 07:00 Intake Total 150 ml 1200 ml 140 ml Output Total 1000 ml 150 ml Balance 150 ml 200 ml -10 ml objective Gen.: Patient lying in bed in no apparent distress. On room air Head: Normocephalic, atraumatic. Eyes: EOMI/PERRLA. Ears: Normal hearing. Normal anatomy. Neck/trachea: Trachea midline, supple. Nose: Normal external anatomy. Mouth: Moist mucous membranes. Chest: Decreased air entry bilaterally. No wheezing or rhonchi. Cardiovascular: Positive S1, positive S2. Regular rate and rhythm. Abdomen: Positive bowel sounds in all 4 quadrants. Soft, non-tender, non- distended. : Deferred. Rectal: Deferred. Skin: Warm, dry. Intact. Extremities: 2+ radial pulses bilaterally. No lower extremity edema. Neuro: Awake, alert, oriented x3. No gross motor or sensory deficits. Cranial nerves II through XII intact. Gait not assessed. laboratory and microbiology Laboratory Tests 04/22/24 05:00 Test 04/22/24 05:00 Range/Units Serum Glucose 158 H 74-106 mg/dL Assessment/Plan Impression: Acute cholecystitis Hypoxemia Atelectasis Influenza COVID-19 Morbid obesity Events: Tapered from 2 LPM NC --> room air Supplemental oxygen PRN Improved O2 requirements Continue antibiotics - ceftriaxone/metronidazole Completes Tamiflu course today. Incentive spirometry Monitor BP due to hypertension - continue Losartan BP remains elevated - plan to give hydralazine. WBC improving GI recs appreciated. Surgery recommendations appreciated IV fluids with NS at 125 ml/hr. Monitor renal function. Monitor electrolytes. Supplement as necessary. GI prophylaxis w/ Protonix DVT prophylaxis w/ Lovenox Patient is stable for discharge from the pulmonary standpoint. Labs and imaging reviewed. Rest of plan as noted below. Plan: Supplemental oxygen PRN Titrate to keep O2 sats above 92%. Tamiflu course Continue antibiotics IS Monitor renal function. Monitor electrolytes. Supplement as necessary. GI prophylaxis - Protonix DVT prophylaxis - Lovenox Prognosis: Guarded given patient's multiple co-morbidities. Rest of plan per hospitalist and other consultants. Thank you, Dr. Diana, for allowing me to participate in this patient's care. Further recommendations will depend on the patient's clinical course. Please do not hesitate to contact me if you have any questions or concerns. This medical document was created using an electronic medical record system with [employer] dictation system. Although these documentations are being carefully reviewed, there may still be some phonetic and typographical changes. The errors are purely typographical, due to imperfection on the software program, and do not reflect any compromise in the patient's medical care. Plan discussed with: Patient, Other (ESAU Cuevas) ANUSHA CIFUENTES MD Apr 22, 2024 22:33
== END 2024-04-22 16:05 | disposition home or self-care (01) | DRG 871 ==
LOC: ER 15:20 → OVERFLOW 20:57 → EAST 04-17 02:51
PROVIDERS: ADMIT Internal Medicine Geriatric Medicine; ATTEND Internal Medicine Geriatric Medicine
DX: A41.89 Other specified sepsis (principal); N17.0 Acute kidney failure with tubular necrosis; U07.1 COVID-19; N39.0 Urinary tract infection, site not specified; K81.0 Acute cholecystitis; J98.11 Atelectasis; E11.65 Type 2 diabetes mellitus with hyperglycemia; E66.01 Morbid (severe) obesity due to excess calories; G89.29 Other chronic pain; I16.0 Hypertensive urgency; J10.1 Influenza due to other identified influenza virus with other respiratory manifestations; Z96.653 Presence of artificial knee joint, bilateral; Z96.641 Presence of right artificial hip joint; Z68.38 Body mass index [BMI] 38.0-38.9, adult; Z83.3 Family history of diabetes mellitus; Z82.49 Family history of ischemic heart disease and other diseases of the circulatory system; Z80.6 Family history of leukemia
CPT/HCPCS: 36415; 71045; 74176; 80048; 80053; 80061; 80307; 80320; 81001; 82140; 83036; 83605; 83690; 83735; 83880; 84484; 85007; 85025; 85027; 85610; 85730; 86803; 87040; 87086; 87340; 87426; 87804; 93005; 93306; 96365; 96372; 96375; G0378; G9035; J2470; J2543; J3490; Q0162

== ENCOUNTER 2024-04-22 16:15 | Emergency (ER) | payer MEDICARE, OTHER ==
[~2024-04-22] VITALS: Ht 157.5 cm; Wt 103.0 kg
[~2024-04-22 16:15] MED LIST changes: +EMPA1TAB; +LOSA-535 PO; +METH2.5T PO
--- NOTE | 2024-04-22 18:05 | ED.PDOC ---
Musculoskeletal HPI Comments 79 y/o F, presents to the ED for CC of right ankle pain. Patient states, that she was discharged from [facility] today (04/22/24); while being loaded into her car she fell and tripped landing on her ankle and causing it to twist. Patient relays, that she is able to move her right ankle with limited mobility. Patient denies head injury, body-aches, abrasions, lacerations, or any other musculoskeletal problem. No other associated symptom's, modifiers, recent injuries or sick contact at this time. 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 Chief Complaint: Lower Extremity Time Seen by MD: 17:50 Primary Care Provider: BRET Reviewed Notes: Nurses Notes, Medications, Allergies Allergies: Coded Allergies: NO KNOWN ALLERGIES (Unverified , 04/20/21) Home Meds Active Scripts Naproxen (NAPROSYN TABLET) 500 Mg Tb, 500 MG PO BID for 30 Days, #60 TAB 2 Refills Prov:BUTCH LEBLANC MD 04/20/21 Reported Medications Methotrexate (Methotrexate) 2.5 Mg Tab, 2.5 MG PO, MG 04/17/24 Losartan Potassium (Losartan Potassium) 100 Mg Tab, 1 TAB PO DAILY 04/17/24 Empagliflozin (Jardiance) 10 Mg Tab, 1 DAILY 04/17/24 Information Source: Patient, Relative (Child) Mode of Arrival: Ambulatory Location: Right Extremity Location: Ankle Timing: Minutes Prehospital treatment: None Severity: Moderate Able to Move Extremity: Yes Bear Weight: Limited Pain: Moderate Circumstances: Fall Onset of Symptoms: After Trauma Symptoms: Swelling, Pain DVT Risk Factors: NONE Associated signs and symptoms: Ankle pain Past Medical History PAST MEDICAL HISTORY: DM, HTN Surgical History: Denies all surgeries 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 Family History Family History: Reviewed,noncontributory to illness Social History Smoker: Non-Smoker Alcohol: Denies ETOH Use Drugs: Denies Drug Use Lives In: Home Constitutional: denies: chills, diaphoresis, fatigue, fever, malaise, sweats, weakness, others EENTM: denies: blurred vision, double vision, ear bleeding, ear discharge, ear drainage, ear pain, ear ringing, eye pain, eye redness, hearing loss, mouth pain, mouth swelling, nasal discharge, nose bleeding, nose congestion, nose pain, photophobia, tearing, throat pain, throat swelling, voice changes, others Respiratory: denies: cough, hemoptysis, orthopnea, SOB at rest, shortness of breath, SOB with excertion, stridor, wheezing, others Cardiovascular: denies: chest pain, dizzy spells, diaphoresis, Dyspnea on exertion, edema, irregular heart beat, left arm pain, lightheadedness, palpitations, PND, syncope, others Gastrointestinal: denies: abdomen distended, abdominal pain, blood streaked bowels, constipated, diarrhea, dysphagia, difficulty swallowing, hematemesis, melena, nausea, poor appetite, poor fluid intake, rectal bleeding, rectal pain, vomiting, others Genitourinary: denies: abnormal vagina bleeding, burning, dyspareunia, dysuria, flank pain, frequency, hematuria, incontinence, pain, , vagina disch arge, urgency, others Neurological: denies: dizziness, fainting, headache, left sided numbness, left sided weakness, numbness, paresthesia, pre-existing deficit, right sided numbness, right sided weakness, seizure, speech problems, tingling, tremors, weakness, others Musculoskeletal: reports: muscle pain, others (Right knee and right ankle pain); denies: back pain, gout, joint pain, joint swelling, muscle stiffness, neck pain Integumetry: denies: bruises, change in color, change in hair/nails, dryness, laceration, lesions, lumps, rash, wounds, others Allergic/Immunocompromised: denies: Difficulty Healing, Frequent Infections, Hives, Itching, others Hematologic/Lymphatic: denies: anemia, blood clots, easy bleeding, easy bruising, swollen glands, others Endocrine: denies: excessive hunger, excessive sweating, excessive thirst, excessive urination, flushing, intolerance to cold, intolerance to heat, unexplained weight gain, unexplained weight loss, others Psychiatric: denies: anxiety, bipolar disorder, depression, hopeless, panic disorder, schizophrenia, sleepless, suicidal, others All Other Systems: Reviewed and Negative Physical Exam General Appearance: Moderate Distress (Moderate distress at time of evaluation due to ankle pain concerns.), Obese HEENT: Normal ENT Inspection, Pharynx Normal, TMs Normal Neck: Full Range of Motion, Non-Tender, Normal, Normal Inspection Respiratory: Chest Non-Tender, Lungs Clear, No Accessory Muscle Use, No Respiratory Distress, Normal Breath Sounds Cardiovascular: No Edema, No JVD, No Murmur, No Gallop, Normal Peripheral Pu lses, Regular Rate/Rhythm Breast Exam: Deferred Gastrointestinal: No Organomegaly, Non Tender, No Pulsatile Mass, Normal Bowel Sounds, Soft Genitalia: Deferred Pelvic: Deferred Rectal: Deferred Extremities: Other (Diffuse right knee tenderness to palpation without particularly remarkable findings. No particular edema noted. No ecchymosis. Lateral aspect of the right ankle reveals moderate edema with ecchymosis. Significant reduced range of motion. No crepitus noted. Distal neurovascularly intact.) Neurologic: Alert, No Motor Deficits, Normal Affect, Normal Mood, No Sensory Deficits Cerebellar Function: Normal Reflexes: Normal Skin: Dry, Normal Color, Warm Lymphatic: No Adenopathy Was a procedure done? Was a procedure done?: No Differential Diagnosis EXT Differential Diagnosis: Fracture, Sprain, Dislocation, Strain X-Ray, Labs, Meds, VS Vital Signs Date Time Temp Pulse Resp B/P (MAP) Pulse Ox O2 Delivery O2 Flow Rate FiO2 04/22/24 16:42 98.0 83 18 150/97 (114) 97 X-Ray, Labs, Meds, VS Comment All studies performed the ED were evaluated by me personally. Imaging studies were unremarkable for any acute fractures of the knee or ankle. Patient sustained a twisting injury. Advise utilizing crutches and Thomas wrap as long as it aid in healing as well as pain medication as needed. Time of 1ST Reevaluation: 18:20 Reevaluation 1ST: Unchanged Consultation: PCP Patient Education/Counseling: Diagnosis, Treatment Family Education/Counseling: Diagnosis, Treatment Departure 1 Departure Time of Disposition: 21:10 Impression: Primary Impression: Knee sprain Additional Impression: Ankle sprain Disposition: HOME / SELF CARE / HOMELESS Condition: Stable Additional Instructions: Advise utilizing pain medication as needed and crutches and Thomas wrap as long as it aid in the healing process. e-Prescriptions Hydrocodone-Acetaminophen (Hydrocodone Bitartrate/AC 5-325 mg) 1 Tab Tab 1 TAB PO Q8HP PRN, #12 TAB Prov: KENTONZAIRA PAC 04/22/24 Discharged With: Self, Relative Critical Care Note Critical Care Time?: No Stability Stability form required: No Heart Score Heart Score: Heart Score Response (Comments) Value History N/A 0 EKG N/A 0 Age N/A 0 Risk Factors N/A 0 Troponin N/A 0 Total 0 I personally scribed for ZAIRA FUNG PAC ([email or web address]) on 04/22/24 at 18:05. Electronically submitted by Daksha Fay ([email or web address]). ZAIRA FUNG PAC Apr 22, 2024 18:05
--- NOTE | 2024-04-22 18:28 | DVH ---
CLINICAL INDICATION: Fall/trauma TECHNIQUE: 9 radiographic views of the right tibia and fibula were obtained. Comparison: None FINDINGS/IMPRESSION: Total right knee arthroplasty is seen. There are no fractures of the distal femur or proximal tibia or fibula. 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 The visualized joint space is well maintained. The alignment is anatomical. There is no radiopaque foreign body.
[2024-04-22] MEDS ORDERED: HYDR-4902 PO (21:11)
[2024-04-22] MEDS: cloNIDine HCL 0.1 MG TAB PO ONE (21:40)
[2024-04-22] MEDS: HYDROcodone-ACET 10/325MG TAB PO ONE (21:41)
[2024-04-22 21:42] VITALS: RESP 18; TEMP 98; O2SAT 98
[2024-04-22 22:21] VITALS: BP 179/84; PULSE 76
--- NOTE | 2024-04-29 14:10 | DVH ---
CLINICAL INDICATION: Fall/trauma TECHNIQUE: XY R KNEE 3V XRAY Comparison: None FINDINGS/IMPRESSION: : There is no evidence of acute fracture or dislocation. Right knee arthroplasty. Small joint effusion. Diffuse subcutaneous soft-tissue edema. Vascular atherosclerotic calcifications are present.
== END 2024-04-22 22:22 | disposition home or self-care (01) ==
LOC: ER 16:15
DX: S93.401A Sprain of unspecified ligament of right ankle, initial encounter (principal); S83.91XA Sprain of unspecified site of right knee, initial encounter; I10 Essential (primary) hypertension; E11.9 Type 2 diabetes mellitus without complications; Z79.84 Long term (current) use of oral hypoglycemic drugs; Z79.899 Other long term (current) drug therapy; Z96.651 Presence of right artificial knee joint; W01.0XXA Fall on same level from slipping, tripping and stumbling without subsequent striking against object, initial encounter; Y93.89 Activity, other specified; Y92.89 Other specified places as the place of occurrence of the external cause; Y99.8 Other external cause status
CPT/HCPCS: 73562; 73610